=== PATIENT | female | born 1965 | race Caucasian/White ===

== ENCOUNTER 2016-03-12 12:44 | Emergency (ER) | payer OTHER ==
[~2016-03-12 12:44] MED LIST: ALLERGY SHOTS; ATENOLOL25 MG PO; BENACAR; BENICAR20 MG PO; BYDUREON PEN2 MG SC; CIPRO500 MG; CIPROFLOXACIN500 MG PO; CLARITIN10 MG PO; CLINDAMYCIN HC150 MG PO; CLINDAMYCIN150 MG PO; COZAAR100 MG PO; CYCLOBENZAPRINE10 MG PO; CYCLOBENZAPRINE5 M3 PO; CYMBALTA60 MG PO; ENABLEX15 MG; ENABLEX15 MG PO; FLEXERIL10 MG PO; HYDROCODONE BIT1 T11 PO; HYOMAX0.125 MG PO; JANUVIA100 MG; MOTRIN800 MG PO; MULTIPLE VITAMI1 CAP PO; Metformin Hydr500 MG PO; Motrin,Rufen800 MG PO; NAPROSYN375 MG PO; OMEPRAZOLE20 MG PO; ORPHENADRINE C100 M1 PO; Orphenadrine C100 MG PO; PREDNISONE50 MG PO; SINGULAIR10 MG PO; SKELAXIN800 MG PO; SYNTHROID,LEVO25 MCG PO; TOPROL XL25 MG PO; TRAMADOL HCL50 MG PO; ULTRAM50 MG PO; VICODIN 5-3001 EACH PO; VICODIN 5/500 505 MG PO; VICODIN 500 MG-1 TAB PO; VOLTAREN50 M1 PO; XANAX0.25 MG PO; ZITHROMAX Z PA250 MG PO
[2016-03-12 12:52] VITALS: BP 140/90
== END 2016-03-12 13:17 | disposition home or self-care (01) ==
LOC: ED 12:44
DX: L25.9 Unspecified contact dermatitis, unspecified cause (principal); Z88.1 Allergy status to other antibiotic agents; Z88.2 Allergy status to sulfonamides; Z90.49 Acquired absence of other specified parts of digestive tract; Z90.710 Acquired absence of both cervix and uterus; Z79.899 Other long term (current) drug therapy

== ENCOUNTER 2016-11-06 17:59 | Emergency (ER) | payer OTHER ==
[~2016-11-06] VITALS: Wt 81.6 kg
[2016-11-06 18:10] VITALS: BP 115/94
[2016-11-06] MEDS ORDERED: ROBAXIN500 M1 PO (18:15)
== END 2016-11-06 18:30 | disposition home or self-care (01) ==
LOC: ED 17:59
DX: M62.830 Muscle spasm of back (principal); R21 Rash and other nonspecific skin eruption; Z88.1 Allergy status to other antibiotic agents; Z88.8 Allergy status to other drugs, medicaments and biological substances; Z79.899 Other long term (current) drug therapy

== ENCOUNTER → 2016-11-24 | Outpatient (CLI) | payer OTHER ==
[~2016-11-24] MED LIST changes: +ROBAXIN500 M1 PO
== END | disposition home or self-care (01) ==
LOC: CT 11:00 → LAB 11:23
PROVIDERS: Radiology Diagnostic Radiology
DX: R10.9 Unspecified abdominal pain (principal); Z98.891 History of uterine scar from previous surgery

== ENCOUNTER 2017-07-14 12:10 | Emergency (ER) | payer OTHER ==
[~2017-07-14] VITALS: Wt 91.2 kg
[2017-07-14 12:15] VITALS: BP 157/88
[2017-07-14 12:35] LABS: BASO # 0.1 10*3/uL (0.0-0.1); EOS # 0.2 10*3/uL (0.0-0.4); EOS % 1.9 % (1.0-4.0); HEMATOCRIT 43.3 % (37.0-47.0); HEMOGLOBIN 14.8 g/dl (12.0-16.0); LYMPH # 2.9 10*3/uL (1.3-4.4); LYMPH % 31.4 % (27.0-41.0); MEAN CELL VOLUME 96.9 fl (81.0-99.0); MEAN CORPUSCULAR HGB 33.1 pg (27.0-31.0); MEAN CORPUSCULAR HGB CONC 34.2 g/dl (33.0-37.0); MEAN PLATELET VOLUME 9.7 fl (9.6-12.3); MONO # 0.6 10*3/uL (0.1-1.0); MONO % 6.9 % (3.0-9.0); NEUT # 5.3 10*3/uL (2.3-7.9); NEUT % 58.5 % (47.0-73.0); PLATELET COUNT AUTOMATED 264 10*3/uL (130-400); RED BLOOD COUNT 4.47 10*6/uL (4.10-5.10); RED CELL DISTRI WIDTH 12.8 % (0-14.5); WHITE BLOOD COUNT 9.1 10*3/uL (4.8-10.8)
[2017-07-14 12:53] LABS: ALBUMIN 3.9 gm/dl (3.1-4.5); ALKALINE PHOSPHATASE 122 U/L (45-117); BUN 11 mg/dl (7-24); CHLORIDE 102 mmol/L (98-107); CREATININE 0.92 mg/dL (0.55-1.02); LIPASE 126 U/L (73-393); POTASSIUM 3.7 mmol/L (3.5-5.1); SGOT/AST 38 IU/L (3-35); SGPT/ALT 43 U/L (12-78); SODIUM 138 mmol/L (136-145); TOTAL PROTEIN 7.5 gm/dL (6.4-8.2)
[2017-07-14 13:40] LABS: BILIRUBIN NEGATIVE (NEGATIVE); BLOOD NEGATIVE (NEGATIVE); CLARITY CLOUDY (CLEAR); COLOR YELLOW (YELLOW); GLUCOSE NEGATIVE (NEGATIVE); KETONE NEGATIVE (NEGATIVE); LEUKO ESTERASE NEGATIVE (NEGATIVE); NITRITE NEGATIVE (NEGATIVE); SPECIFIC GRAVITY >= 1.030 (1.005-1.030); UROBILINOGEN 0.2 E.U./dl (0.2-1.0)
[2017-07-14 13:57] LABS: BACTERIA 2+
[2017-07-14] MEDS ORDERED: CHLORZOXAZONE500 M2 PO (14:05)
== END 2017-07-14 14:19 | disposition home or self-care (01) ==
LOC: ED 12:10
PROVIDERS: Nurse Practitioner Family
DX: M54.5 Low back pain (principal); R03.0 Elevated blood-pressure reading, without diagnosis of hypertension; M19.90 Unspecified osteoarthritis, unspecified site; E11.9 Type 2 diabetes mellitus without complications; Z88.8 Allergy status to other drugs, medicaments and biological substances; Z88.6 Allergy status to analgesic agent; Z90.710 Acquired absence of both cervix and uterus; Z90.49 Acquired absence of other specified parts of digestive tract; Z79.899 Other long term (current) drug therapy

== ENCOUNTER 2017-07-18 14:37 | Inpatient (IN) | payer OTHER ==
[~2017-07-18] VITALS: Ht 152.4 cm; Wt 92.1 kg
--- NOTE | ~2017-07-18 | WRIGHTHP ---
[place], [place] PATIENT HISTORY AND PHYSICAL EXAM NAME: NATHANAEL COLE [facility] #: [id number] UNIT #: [id number] ROOM: 403 DOCTOR: PEDRO BAE MD BIRTHDATE: [birth year] DOS: 07/18/2017 HISTORY OF PRESENT ILLNESS: The patient is a 51-year-old female with past medical history of obesity, hypertension, diabetes mellitus type 2, hiatal hernia, cysts in both kidneys, urinary incontinence, mixed hyperlipidemia, colonoscopy in 2011, right foot surgery in June 2008, back injury at work in 2016 with chronic back pains. The patient presented to Emergency Department at [facility] with recurrent mid back and chest pains. She also had some increased shortness of breath and wheezing recently and complains of right flank pains for about 4 days and some nausea and vomiting. After admission, the patient's cardiac enzymes have been negative and patient has been seen by day habilitation supervisor and scheduled for a cardiac stress test. REVIEW OF SYSTEMS: LUNGS: Some shortness of breath and wheezing. GASTROINTESTINAL: Some nausea and vomiting. CARDIOVASCULAR: Complains of recurrent chest pains and back pains. FAMILY HISTORY: Noncontributory, except for father with coronary artery disease and MO at a young age. SOCIAL HISTORY: Denies smoking cigarettes, alcohol and drug abuse, but she has some exposure to secondhand smoke. HOME MEDICATIONS: Lisinopril, omeprazole, levothyroxine, Coreg, Cymbalta. ALLERGIES: Known allergies to DIAZEPAM, SULPHUR. PHYSICAL EXAMINATION: GENERAL: Alert, oriented x 3, obese. VITAL SIGNS: Blood pressure 126/90, heart rate of 73 beats per minute, breathing 20 times per minute, temperature 98 degrees Fahrenheit. HEENT AND NECK: Extraocular movements are intact. Sclerae are anicteric. Oral mucosa is moist and clean. No obvious facial weakness. Neck is supple without any lymphadenopathy. No thyromegaly. No JVD. No carotid arterial bruits. LUNGS: Clear to auscultation. No wheezing. No rhonchi. CARDIOVASCULAR SYSTEM: Heart rate is regular in rate and rhythm. S1 and S2 normally audible. No significant murmur or any other abnormal cardiac sounds. ABDOMEN: Soft, nontender. No obvious organomegaly. Bowel sounds are present. No obvious herniation. EXTREMITIES: Without significant cyanosis or edema. Warm to touch. CENTRAL NERVOUS SYSTEM: Alert and oriented x 3. Cranial nerves II-XII are intact. Speech is normal. The patient is able to move all extremities. Normal muscle strength. Deep tendon reflexes are equal on both sides. Plantars were downgoing. IMPRESSION: 1. The patient with acute bronchitis with some asthmatoid wheezing, to be treated with bronchodilators. 2. Recurrent chest pain, being evaluated with a cardiac stress test by [place], [place] PATIENT HISTORY AND PHYSICAL EXAM NAME: NATHANAEL COLE UNIT #: [id number] ROOM: [facility] DOCTOR: PEDRO BAE MD BIRTHDATE: [birth year] Cardiology. The patient has urine cultures growing Escherichia coli urinary tract infection from the July 16, to be treated with Augmentin, may be responsible for her flank pains. 3. Type 2 diabetes mellitus. Blood sugars are reasonably controlled. 4. Benign essential hypertension. Blood pressures are treated and controlled. 5. Major depression, recurrent, moderate. The patient remains on Cymbalta, which is being continued. 6. Hypothyroidism, treated with levothyroxine. PEDRO BAE MD CM:HISPHYS:PATIENT HISTORY AND PHYSICAL EXAMINATION [id number] PEDRO BAE MD 07/19/1734 interface
--- NOTE | ~2017-07-18 | DS ---
[place], [place] DISCHARGE SUMMARY NAME: NATHANAEL COLE UNIT #: [id number] ROOM: 403 DOCTOR: PEDRO BAE MD BIRTHDATE: [birth year] DOS: 07/20/2017 DISCHARGE DIAGNOSES: 1. Musculoskeletal chest pains, normal cardiac stress test and echocardiogram. 2. Acute bronchitis with asthmatoid wheezing. 3. Type 2 diabetes mellitus. 4. Benign essential hypertension. 5. Major depression, recurrent, moderate. 6. Hypothyroidism. 7. Obesity. 8. Hiatal hernia. 9. History of cysts in both kidneys. 10. Urinary incontinence. 11. Mixed hyperlipidemia. 12. Colonoscopy in 2011. 13. Right foot surgery in June 2008. 14. Back injury at work in 2016 with chronic back pains. HOSPITAL COURSE: The patient was admitted when she presented with mid back and chest pains, increased shortness of breath and wheezing, also right flank pains for about 4 days and some nausea and vomiting after admission. The patient was ruled out for acute MT with serial cardiac enzymes and then taken for a cardiac stress test, which was normal. An echocardiogram was also found to be normal. The patient to be discharged to home. She is asymptomatic now. Acute asthmatoid wheezing with some shortness of breath, treated with bronchodilators and improved. Urinary tract infection with E. coli, treated with Augmentin, probably responsible for the left flank pain, which has resolved. Major depression, recurrent, moderate, treated and controlled with Cymbalta. Hypothyroidism, treated with levothyroxine. Type 2 diabetes mellitus. Blood sugars appear to be reasonably controlled. LABORATORY DATA: Normal serum electrolytes. Normal cardiac enzymes. Echocardiogram is showing no wall motion abnormality. Cardiac stress test was normal. Normal CBC. DISCHARGE MANAGEMENT: Lisinopril 40 mg a day, omeprazole 20 mg a day, levothyroxine 25 mcg daily, Coreg 6.25 mg b.i.d., gabapentin 600 mg b.i.d., Cymbalta 60 mg a day, oxybutynin 5 mg t.i.d. FOLLOWUP: With Dr. Shaheen Hendricks next week. [place], [place] DISCHARGE SUMMARY NAME: NATHANAEL COLE UNIT #: [id number] ROOM: 403 DOCTOR: PEDRO BAE MD BIRTHDATE: [birth year] PEDRO BAE MD CM:DALE 15 [id number] PEDRO BAE MD 07/20/171933 interface
[~2017-07-18 14:37] MED LIST changes: +CHLORZOXAZONE500 M2 PO; -OMEPRAZOLE20 MG PO; +OMEPRAZOLE40 MG PO
[2017-07-18 14:45] VITALS: BP 116/98
[2017-07-18 14:56] LABS: BASO # 0.1 10*3/uL (0.0-0.1); BASO % 1.3 % (0.0-1.0); EOS # 0.2 10*3/uL (0.0-0.4); HEMATOCRIT 43.6 % (37.0-47.0); HEMOGLOBIN 15.1 g/dl (12.0-16.0); LYMPH % 32.1 % (27.0-41.0); MEAN CELL VOLUME 95.4 fl (81.0-99.0); MEAN CORPUSCULAR HGB CONC 34.6 g/dl (33.0-37.0); MEAN PLATELET VOLUME 9.6 fl (9.6-12.3); MONO # 0.6 10*3/uL (0.1-1.0); MONO % 6.7 % (3.0-9.0); NEUT # 5.4 10*3/uL (2.3-7.9); NEUT % 57.6 % (47.0-73.0); PLATELET COUNT AUTOMATED 305 10*3/uL (130-400); RED BLOOD COUNT 4.57 10*6/uL (4.10-5.10); RED CELL DISTRI WIDTH 12.7 % (0-14.5); WHITE BLOOD COUNT 9.3 10*3/uL (4.8-10.8)
[2017-07-18 15:04] VITALS: BP 119/89
[2017-07-18 15:04] LABS: ACT PARTIAL THROMBO TIME 22.8 SECONDS (20.8-31.5); INTERNATIONAL NORM RATIO 0.9 (2.0-3.5)
[2017-07-18 15:11] LABS: ALBUMIN 3.8 gm/dl (3.1-4.5); ALKALINE PHOSPHATASE 122 U/L (45-117); BUN 17 mg/dl (7-24); CHLORIDE 104 mmol/L (98-107); CREATININE 0.96 mg/dL (0.55-1.02); SGOT/AST 67 IU/L (3-35); SGPT/ALT 52 U/L (12-78); SODIUM 138 mmol/L (136-145); TOTAL PROTEIN 7.6 gm/dL (6.4-8.2)
[2017-07-18] MEDS ORDERED: LISINOPRIL40 MG PO (15:18)
[2017-07-18 15:19] LABS: TROPONIN I < 0.015 ng/ml (<0.045)
[2017-07-18] MEDS ORDERED: COREG6.25 MG PO (15:19)
[2017-07-18] MEDS ORDERED: NEURONTIN300 MG PO (15:30)
[2017-07-18 15:46] VITALS: BP 117/69
[2017-07-18 16:24] LABS: BILIRUBIN 1+ (NEGATIVE); BLOOD NEGATIVE (NEGATIVE); CLARITY SL CLOUDY (CLEAR); COLOR YELLOW (YELLOW); GLUCOSE NEGATIVE (NEGATIVE); KETONE TRACE (NEGATIVE); LEUKO ESTERASE NEGATIVE (NEGATIVE); NITRITE NEGATIVE (NEGATIVE); PH 5.5 (5.0-9.0); UROBILINOGEN 0.2 E.U./dl (0.2-1.0)
[2017-07-18 16:38] LABS: MUCOUS 1+; RBC 0-2 rbc/hpf (0-2)
[2017-07-18 20:00] VITALS: BP 123/83
[2017-07-19] VITALS: BP 160/44
[2017-07-19 08:00] VITALS: BP 126/90
[2017-07-19 12:00] VITALS: BP 146/90
[2017-07-19 16:00] VITALS: BP 124/83
[2017-07-19 20:00] VITALS: BP 108/63
[2017-07-19 23:56] VITALS: BP 140/82
[2017-07-20 08:00] VITALS: BP 110/78
[2017-07-20 12:00] VITALS: BP 130/61
[2017-07-20 16:00] VITALS: BP 141/82
== END 2017-07-20 19:44 | disposition home or self-care (01) | DRG 202 ==
LOC: ED 14:37 → EDHOLD 16:01 → 4E 16:01
PROVIDERS: Emergency Medicine
PROC: 4A02XM4 Measurement of Cardiac Total Activity, External Approach (ICD-10-PCS; principal; 2017-07-19)
PROC: 3E073KZ Introduction of Other Diagnostic Substance into Coronary Artery, Percutaneous Approach (ICD-10-PCS; 2017-07-19)
DX: J20.9 Acute bronchitis, unspecified (principal); N39.0 Urinary tract infection, site not specified; E11.65 Type 2 diabetes mellitus with hyperglycemia; F33.1 Major depressive disorder, recurrent, moderate; R07.89 Other chest pain; E66.01 Morbid (severe) obesity due to excess calories; R00.0 Tachycardia, unspecified; K44.9 Diaphragmatic hernia without obstruction or gangrene; R32 Unspecified urinary incontinence; E78.2 Mixed hyperlipidemia; R74.0 Nonspecific elevation of levels of transaminase and lactic acid dehydrogenase [LDH]; M19.90 Unspecified osteoarthritis, unspecified site; I10 Essential (primary) hypertension; G89.29 Other chronic pain; E03.9 Hypothyroidism, unspecified; M54.9 Dorsalgia, unspecified; B96.20 Unspecified Escherichia coli [E. coli] as the cause of diseases classified elsewhere; N32.81 Overactive bladder; M79.2 Neuralgia and neuritis, unspecified; K21.9 Gastro-esophageal reflux disease without esophagitis; Z90.710 Acquired absence of both cervix and uterus; Z90.49 Acquired absence of other specified parts of digestive tract; Z79.899 Other long term (current) drug therapy; Z88.1 Allergy status to other antibiotic agents; Z88.2 Allergy status to sulfonamides; Z88.8 Allergy status to other drugs, medicaments and biological substances; Z83.3 Family history of diabetes mellitus; Z82.49 Family history of ischemic heart disease and other diseases of the circulatory system; Z82.3 Family history of stroke; Z80.1 Family history of malignant neoplasm of trachea, bronchus and lung; Z83.79 Family history of other diseases of the digestive system

== ENCOUNTER 2017-07-22 19:58 | Inpatient (IN) | payer OTHER ==
[2017-07-22] VITALS (18 sets, daily range): BP systolic 61–110; BP diastolic 28–78
[~2017-07-22] VITALS: Ht 152.4 cm; Wt 95.0 kg
--- NOTE | ~2017-07-22 | PR ---
[place], [place] [facility]GR[facility] NOTE [id number] UN[facility] #: [id number] ROOM: 505 DOCTOR: GHADA RAMIREZ MD BIRTHDATE: [birth year] DOS: SUBJECTIVE: The patient is not having any complaints today. She is resting. OBJECTIVE: VITAL SIGNS: Blood pressure is 95/52, pulse of 90, respirations 20, temperature 97.9. LUNGS: Clear. HEART: Regular. ABDOMEN: Soft. EXTREMITIES: Without any edema. LABORATORY DATA: Carotid Doppler was negative. Thoracic spine MRI was normal. ASSESSMENT AND PLAN: 1. Vasovagal syncope result on admission. After admission, she has remained stable without any problems: 2. Chronic back pain. MRI was negative yesterday, so the plan is to discharge her to home today. GHADA RAMIREZ MD CM:PNTRANS [id number] GHADA RAMIREZ MD 07/24/17 0926 interface
--- NOTE | ~2017-07-22 | WRIGHTHP ---
[place], [place] PATIENT HISTORY AND PHYSICAL EXAM [id number] UNIT #: [id number] ROOM: 505 DOCTOR: GHADA RAMIREZ MD BIRTHDATE: [birth year] DOS: 07/22/2017 HISTORY OF PRESENT ILLNESS: The patient is 51 years old. The patient comes in with complaints of back pain. The patient states that she was in the hospital with chest pain and back pain last week. Had a complete workup including stress test, echocardiogram and troponins, which were all normal along with a CT of the chest, which was also negative. The patient was discharged to home, but continued to have severe back pain, so decided to come back to the Emergency Room. Workup was initiated in the ER and they were about to discharge the patient to home when she fainted in front of the nursing staff and her provider, so the patient was admitted. This morning, the only complaint that she has is she has back pain. Denies having any chest pains or palpitations, does not have any fever or chills. Does not have any abdominal pain, nausea, emesis. Does not have any cough or shortness of breath. The patient is rocking in chair because of continued complaints of back and requesting something for back pain. PAST MEDICAL HISTORY: Significant for: 1. Again recent hospitalization for musculoskeletal pain and workup was negative. 2. Chronic back pain. 3. Major depression. 4. Hypothyroidism. 5. Benign hypertension. 6. Type 2 diabetes mellitus. MEDICATIONS: She is on are Bydureon, omeprazole 40 daily, lisinopril 40 daily, levothyroxine 25 mcg daily, Neurontin 300 b.i.d., duloxetine 60 daily, Enablex 50 daily, Coreg 6.25 twice a day. SOCIAL HISTORY: Nonsmoker. She lives at home. PHYSICAL EXAMINATION: GENERAL: She is awake and alert and oriented. She is rocking in chair because of her back pain. BACK: Examination reveals a large area of discoloration, possibly from burning from heating pad. LUNGS: Clear. HEART: Regular. ABDOMEN: Obese, soft, nontender. EXTREMITIES: Without any edema. ASSESSMENT AND PLAN: 1. The patient with syncopal episode, most likely appears to be vasovagal. The patient is ordered a carotid Doppler. Rest of her cardiac workup was recently done and negative, so I am not ordering anything new. 2. Chronic back pain. She has seen pain management and is awaiting a neurosurgical opinion. We will go ahead and arrange for a thoracic spine MRI to see whether she has compression fracture because of recent cough and bronchitis-like symptoms. 3. Type 2 diabetes mellitus, insulin-dependent. Blood sugars will be checked [place], [place] PATIENT HISTORY AND PHYSICAL EXAM NAME: NATHANAEL COLE UNIT #: [id number] ROOM: [facility] DOCTOR: GHADA RAMIREZ MD BIRTHDATE: [birth year] twice daily and coverage scale will be ordered. 4. Acute kidney injury. Her kidney functions do show some worsening from the last time she was here and it could be from acute tubular necrosis from hypotension from multiple medicines that she is on. IV fluids were given and we will recheck the basic metabolic panel in the morning. Avoid nonsteroidals. GHADA RAMIREZ MD CM:HISPHYS:PATIENT HISTORY AND PHYSICAL EXAMINATION [id number] GHADA RAMIREZ MD 07/23/17 1074 interface
--- NOTE | ~2017-07-22 | DS ---
[place], [place] DISCHARGE SUMMARY NAME: NATHANAEL COLE UNIT #: [id number] ROOM: 505 DOCTOR: GHADA RAMIREZ MD BIRTHDATE: [birth year] DOS: 07/24/2017 HISTORY OF PRESENT ILLNESS: The patient is 51 years old. The patient comes to the Emergency Room with complaints of back pain, mostly in the middle of her back. She was just discharged from the hospital 2 days prior to this visit. At that time, she was seen here with shortness of breath. Had a cardiac and pulmonary workups, which were both negative. She was about to be discharged back from the ER when she collapsed in front of the nursing staff, was admitted with diagnosis of vasovagal syncope. The patient does not have any complaints other than back pain after admission. She does not have any dizziness, lightheadedness or headaches. Denies having any chest pains or palpitations. PAST MEDICAL HISTORY: 1. Again, cardiac workup recently was negative. 2. Benign hypertension. 3. Type 2 diabetes mellitus. 4. Hypothyroidism. 5. Mixed hyperlipidemia. 6. History of cystic disease of the kidneys. 7. Chronic back pain. MEDICATIONS: She is currently on are the same as on admission. HOSPITAL COURSE: After admission, the patient was placed on IV fluids. Carotid Doppler was done, which was negative. I did not give her any new antihypertensives, so old antihypertensives have been continued. Blood sugars are under fair control. Carotid Doppler was negative. CT of the head will be done before discharge. Thoracic spine MRI was negative. PLAN: Therefore, to discharge her to home today to follow up with Dr. Sherman as an outpatient. [place], [place] DISCHARGE SUMMARY NAME: NATHANAEL COLE UNIT #: [id number] ROOM: 505 DOCTOR: GHADA RAMIREZ MD BIRTHDATE: [birth year] GHADA RAMIREZ MD CM:DISCHARG 0921 GHADA RAMIREZ MD 07/24/17 1314 interface
--- NOTE | ~2017-07-22 | DS ---
[place], [place] DISCHARGE SUMMARY NAME: NATHANAEL COLE UNIT #: [id number] ROOM: 505 DOCTOR: GHADA RAMIREZ MD BIRTHDATE: [birth year] DOS: 07/24/2017 DIAGNOSES: 1. Vasovagal syncope. 2. Cardiac workup last week completely negative. 3. Carotid Doppler normal. 4. Chronic back pain with normal thoracic spine MRI. 5. Major depression. 6. Chronic back pain. 7. Hypothyroidism. 8. Benign hypertension. 9. Type 2 diabetes mellitus. 10. A 4.4 cm simple left renal cyst. MEDICATIONS: Are the same as admission. The only new prescription given was lidocaine patch for local application. The patient is 51-year-old, comes in with complaints of back pain. She was recently admitted to hospital with chest pain and back pain. Cardiac workup was negative. Echocardiogram was normal. CT of the chest was negative. She came back in again this admission with severe back pain. Workup was negative and the patient was about to be discharged when she fainted in front of the nursing staff, so she was admitted to the hospital. In the hospital, she was given IV fluids. Carotid Doppler was negative, which was normal. Her blood pressures are fairly controlled and her blood sugars also fairly controlled on the current medication. She complained of severe back pain, was given lidocaine patch. MRI of the thoracic spine was ordered, which did not show any pathology at all. Since her pressures have normalized and she has not had any further fainting spells, the plan is to discharge her to home today to follow up as an outpatient. The patient is to follow up with her PCP for further suggestions. [place], [place] DISCHARGE SUMMARY NAME: NATHANAEL COLE UNIT #: [id number] ROOM: 505 DOCTOR: GHADA RAMIREZ MD BIRTHDATE: [birth year] GHADA RAMIREZ MD CM:DISCHARG [id number] GHADA RAMIREZ MD 07/24/17 1529 interface
[~2017-07-22 19:58] MED LIST changes: +COREG6.25 MG PO; +LISINOPRIL40 MG PO; +NEURONTIN300 MG PO
[2017-07-22 21:37] LABS: BASO # 0.1 10*3/uL (0.0-0.1); BASO % 0.9 % (0.0-1.0); EOS # 0.1 10*3/uL (0.0-0.4); EOS % 1.3 % (1.0-4.0); HEMATOCRIT 41.7 % (37.0-47.0); HEMOGLOBIN 14.2 g/dl (12.0-16.0); LYMPH # 2.7 10*3/uL (1.3-4.4); LYMPH % 25.3 % (27.0-41.0); MEAN CELL VOLUME 97.4 fl (81.0-99.0); MEAN CORPUSCULAR HGB 33.2 pg (27.0-31.0); MEAN CORPUSCULAR HGB CONC 34.1 g/dl (33.0-37.0); MEAN PLATELET VOLUME 9.9 fl (9.6-12.3); MONO # 0.7 10*3/uL (0.1-1.0); MONO % 6.7 % (3.0-9.0); NEUT % 65.5 % (47.0-73.0); PLATELET COUNT AUTOMATED 289 10*3/uL (130-400); RED BLOOD COUNT 4.28 10*6/uL (4.10-5.10); RED CELL DISTRI WIDTH 12.7 % (0-14.5); WHITE BLOOD COUNT 10.7 10*3/uL (4.8-10.8)
[2017-07-22 21:52] LABS: ALBUMIN 3.5 gm/dl (3.1-4.5); CREATININE 1.34 mg/dL (0.55-1.02); POTASSIUM 4.7 mmol/L (3.5-5.1); TOTAL PROTEIN 6.7 gm/dL (6.4-8.2)
[2017-07-22 22:02] LABS: TROPONIN I < 0.015 ng/ml (<0.045)
[2017-07-22 23:07] LABS: BILIRUBIN NEGATIVE (NEGATIVE); BLOOD NEGATIVE (NEGATIVE); CLARITY CLEAR (CLEAR); COLOR YELLOW (YELLOW); GLUCOSE 3+ (NEGATIVE); KETONE NEGATIVE (NEGATIVE); LEUKO ESTERASE NEGATIVE (NEGATIVE); NITRITE NEGATIVE (NEGATIVE); SPECIFIC GRAVITY <= 1.005 (1.005-1.030); UROBILINOGEN 0.2 E.U./dl (0.2-1.0)
[2017-07-22 23:17] LABS: BACTERIA 1+; RBC 0-2 rbc/hpf (0-2)
[2017-07-23] VITALS: BP 112/78
[2017-07-23 04:00] VITALS: BP 117/78
[2017-07-23 08:00] VITALS: BP 138/60
[2017-07-23 12:00] VITALS: BP 152/89
[2017-07-23 16:00] VITALS: BP 147/90
[2017-07-23 20:00] VITALS: BP 151/95; BP 1571/95
[2017-07-24] VITALS: BP 155/94
[2017-07-24 04:00] VITALS: BP 148/90
[2017-07-24 08:00] VITALS: BP 95/52
[2017-07-24] MEDS ORDERED: LMX4 4% TRANSPAR1 EA PO (08:57)
[2017-07-24 12:00] VITALS: BP 133/84
== END 2017-07-24 12:09 | disposition home or self-care (01) | DRG 552 ==
LOC: ED 19:58 → 5E 23:33 → EDHOLD 23:33 → 5E 23:40
PROVIDERS: Physician Assistant
DX: M54.9 Dorsalgia, unspecified (principal); N17.9 Acute kidney failure, unspecified; I95.9 Hypotension, unspecified; Z68.41 Body mass index [BMI] 40.0-44.9, adult; N28.1 Cyst of kidney, acquired; R55 Syncope and collapse; G89.29 Other chronic pain; F32.9 Major depressive disorder, single episode, unspecified; E03.9 Hypothyroidism, unspecified; I10 Essential (primary) hypertension; E11.9 Type 2 diabetes mellitus without complications; E78.2 Mixed hyperlipidemia; E66.9 Obesity, unspecified; Z88.8 Allergy status to other drugs, medicaments and biological substances; Z88.2 Allergy status to sulfonamides; Z79.899 Other long term (current) drug therapy; Z90.49 Acquired absence of other specified parts of digestive tract; Z90.710 Acquired absence of both cervix and uterus; Z90.89 Acquired absence of other organs; Z82.49 Family history of ischemic heart disease and other diseases of the circulatory system; Z83.3 Family history of diabetes mellitus; Z82.3 Family history of stroke; Z80.1 Family history of malignant neoplasm of trachea, bronchus and lung; Z84.89 Family history of other specified conditions

== ENCOUNTER 2018-03-13 19:46 | Emergency (ER) | payer OTHER ==
[~2018-03-13] VITALS: Ht 152.4 cm; Wt 90.7 kg
[~2018-03-13 19:46] MED LIST changes: -BYDUREON P2 MG/0.65 SQ; -CARVEDILOL12.5 MG PO; -DITROPAN XL10 MG PO; -METHOCARBAMOL500 M1 PO; -NORCO 5-325 TA1 EACH PO; -NORCO 7.5-3251 EACH PO; -TOUJEO SOL300 UNIT/1 SQ; -ZOFRAN4 MG PO
[2018-03-13 21:26] LABS: BASO # 0.1 10*3/uL (0.0-0.1); BASO % 0.7 % (0.0-1.0); EOS # 0.1 10*3/uL (0.0-0.4); EOS % 1.1 % (1.0-4.0); HEMATOCRIT 45.6 % (37.0-47.0); HEMOGLOBIN 16.2 g/dl (12.0-16.0); LYMPH # 2.3 10*3/uL (1.3-4.4); LYMPH % 20.8 % (27.0-41.0); MEAN CELL VOLUME 93.4 fl (81.0-99.0); MEAN CORPUSCULAR HGB 33.2 pg (27.0-31.0); MEAN CORPUSCULAR HGB CONC 35.5 g/dl (33.0-37.0); MEAN PLATELET VOLUME 9.7 fl (9.6-12.3); MONO # 0.7 10*3/uL (0.1-1.0); MONO % 6.3 % (3.0-9.0); NEUT # 7.8 10*3/uL (2.3-7.9); NEUT % 70.9 % (47.0-73.0); PLATELET COUNT AUTOMATED 274 10*3/uL (130-400); RED BLOOD COUNT 4.88 10*6/uL (4.10-5.10); RED CELL DISTRI WIDTH 12.7 % (0-14.5); WHITE BLOOD COUNT 11.1 10*3/uL (4.8-10.8)
[2018-03-13 21:47] LABS: ALBUMIN 4.1 gm/dl (3.1-4.5); BUN 10 mg/dl (7-24); CHLORIDE 106 mmol/L (98-107); CREATININE 0.92 mg/dL (0.55-1.02); LIPASE 123 U/L (73-393); POTASSIUM 4.1 mmol/L (3.5-5.1); SGOT/AST 72 IU/L (3-35); SGPT/ALT 64 U/L (12-78); SODIUM 139 mmol/L (136-145); TOTAL PROTEIN 7.8 gm/dL (6.4-8.2)
[2018-03-13 21:48] LABS: ALKALINE PHOSPHATASE 163 U/L (45-117)
[2018-03-13 21:56] LABS: BILIRUBIN NEGATIVE (NEGATIVE); BLOOD NEGATIVE (NEGATIVE); CLARITY CLEAR (CLEAR); COLOR YELLOW (YELLOW); GLUCOSE 3+ (NEGATIVE); KETONE TRACE (NEGATIVE); LEUKO ESTERASE NEGATIVE (NEGATIVE); NITRITE NEGATIVE (NEGATIVE); SPECIFIC GRAVITY >= 1.030 (1.005-1.030); UROBILINOGEN 0.2 E.U./dl (0.2-1.0)
[2018-03-13 22:02] LABS: RBC 0-2 rbc/hpf (0-2); WBC 0-2 wbc/hpf (0-5)
[2018-03-13 22:40] VITALS: BP 147/94
[2018-03-14] MEDS ORDERED: TOUJEO SOL300 UNIT/1 SQ (21:43)
[2018-03-14] MEDS ORDERED: METHOCARBAMOL500 M1 PO (21:43)
[2018-03-14] MEDS ORDERED: ZOFRAN4 MG PO (21:49)
[2018-03-21] MEDS ORDERED: CARVEDILOL12.5 MG PO (10:56)
[2018-03-21] MEDS ORDERED: DITROPAN XL10 MG PO (11:00)
[2018-03-28] MEDS ORDERED: NORCO 7.5-3251 EACH PO (10:52)
[2018-04-23] MEDS ORDERED: BYDUREON P2 MG/0.65 SQ (13:47)
[2018-04-25] MEDS ORDERED: NORCO 5-325 TA1 EACH PO (08:54)
== END 2018-03-14 00:27 | disposition home or self-care (01) ==
LOC: ED 19:46
PROVIDERS: Physician Assistant
DX: M54.6 Pain in thoracic spine (principal); R10.9 Unspecified abdominal pain; R11.0 Nausea; G89.29 Other chronic pain; K21.9 Gastro-esophageal reflux disease without esophagitis; E78.5 Hyperlipidemia, unspecified; E03.9 Hypothyroidism, unspecified; I10 Essential (primary) hypertension; E11.9 Type 2 diabetes mellitus without complications; M19.90 Unspecified osteoarthritis, unspecified site; E66.01 Morbid (severe) obesity due to excess calories; Z88.8 Allergy status to other drugs, medicaments and biological substances; Z88.2 Allergy status to sulfonamides; Z79.899 Other long term (current) drug therapy

== ENCOUNTER → 2018-03-13 | Outpatient (CLI) | payer OTHER ==
[~2018-03-13] MED LIST changes: +BYDUREON P2 MG/0.65 SQ; +CARVEDILOL12.5 MG PO; +DITROPAN XL10 MG PO; +LMX4 4% TRANSPAR1 EA PO; +METHOCARBAMOL500 M1 PO; +NORCO 5-325 TA1 EACH PO; +NORCO 7.5-3251 EACH PO; +TOUJEO SOL300 UNIT/1 SQ; +ZOFRAN4 MG PO
== END | disposition home or self-care (01) ==
LOC: LAB 15:42
DX: R19.7 Diarrhea, unspecified (principal)

== ENCOUNTER 2018-03-14 | Emergency (ER) | payer OTHER ==
[2018-03-14] MEDS ORDERED: TOUJEO SOL300 UNIT/1 SQ (21:43)
[2018-03-14] MEDS ORDERED: METHOCARBAMOL500 M1 PO (21:43)
[2018-03-14] MEDS ORDERED: ZOFRAN4 MG PO (21:49)
[2018-03-21] MEDS ORDERED: CARVEDILOL12.5 MG PO (10:56)
[2018-03-21] MEDS ORDERED: DITROPAN XL10 MG PO (11:00)
[2018-03-28] MEDS ORDERED: NORCO 7.5-3251 EACH PO (10:52)
[2018-04-23] MEDS ORDERED: BYDUREON P2 MG/0.65 SQ (13:47)
[2018-04-25] MEDS ORDERED: NORCO 5-325 TA1 EACH PO (08:54)
== END 2018-03-14 21:56 | disposition home or self-care (01) ==
DX: G89.29 Other chronic pain (principal); M54.6 Pain in thoracic spine; R11.10 Vomiting, unspecified; Z88.8 Allergy status to other drugs, medicaments and biological substances; Z88.2 Allergy status to sulfonamides; Z79.899 Other long term (current) drug therapy; Z79.4 Long term (current) use of insulin; Z90.710 Acquired absence of both cervix and uterus; Z90.49 Acquired absence of other specified parts of digestive tract

== ENCOUNTER → 2018-03-21 | Outpatient (CLI) | payer OTHER ==
[~2018-03-21] MED LIST changes: +BYDUREON P2 MG/0.65 SQ; +CARVEDILOL12.5 MG PO; +DITROPAN XL10 MG PO; +METHOCARBAMOL500 M1 PO; +NORCO 5-325 TA1 EACH PO; +NORCO 7.5-3251 EACH PO; +TOUJEO SOL300 UNIT/1 SQ; +ZOFRAN4 MG PO
--- NOTE | ~2018-03-21 | EKG ---
[place], [place] ELECTROCARDIOGRAM REPORT NAME: NATHANAEL COLE UNIT #: [id number] ROOM: DOCTOR: PITER DRAFT REPORT BIRTHDATE: [birth year] [facility] Test Date: 2018-03-21 Test Time: 12:53:03 Pat Name: NATHANAEL COLE Department: Room: Gender: F Band Master: Lupe Fuentes : 1965 Requested By: CIARAN DELONG Order Number: [id number] Reading MD: Tre Paulino MD Measurements Intervals [place] Rate: 79 P: 41 VA: 132 QRS: -15 QRSD: 86 T: 53 QT: 380 QTc: 436 Interpretive Statements Sinus rhythm Borderline left axis deviation Low voltage, precordial leads Electronically Signed On 03-21-2018 17:31:55 PST by Tre Paulino MD CM:EKGRPT:ELECTROCARDIOGRAM REPORT [id number] CIARAN DUMAS DRAFT REPORT CIARAN DELONG MD
[2018-03-21 12:42] LABS: BASO # 0.1 10*3/uL (0.0-0.1); BASO % 1.5 % (0.0-1.0); EOS # 0.3 10*3/uL (0.0-0.4); EOS % 3.4 % (1.0-4.0); HEMATOCRIT 47.3 % (37.0-47.0); HEMOGLOBIN 16.3 g/dl (12.0-16.0); LYMPH # 2.8 10*3/uL (1.3-4.4); LYMPH % 34.6 % (27.0-41.0); MEAN CELL VOLUME 94.4 fl (81.0-99.0); MEAN CORPUSCULAR HGB 32.5 pg (27.0-31.0); MEAN CORPUSCULAR HGB CONC 34.5 g/dl (33.0-37.0); MEAN PLATELET VOLUME 9.9 fl (9.6-12.3); MONO # 0.6 10*3/uL (0.1-1.0); MONO % 7.5 % (3.0-9.0); NEUT # 4.2 10*3/uL (2.3-7.9); NEUT % 52.6 % (47.0-73.0); PLATELET COUNT AUTOMATED 290 10*3/uL (130-400); RED BLOOD COUNT 5.01 10*6/uL (4.10-5.10); RED CELL DISTRI WIDTH 12.8 % (0-14.5)
[2018-03-21 12:45] LABS: BILIRUBIN NEGATIVE (NEGATIVE); BLOOD NEGATIVE (NEGATIVE); CLARITY SL CLOUDY (CLEAR); COLOR YELLOW (YELLOW); GLUCOSE NEGATIVE (NEGATIVE); KETONE NEGATIVE (NEGATIVE); LEUKO ESTERASE NEGATIVE (NEGATIVE); NITRITE NEGATIVE (NEGATIVE); PH 5.5 (5.0-9.0); SPECIFIC GRAVITY >= 1.030 (1.005-1.030); UROBILINOGEN 0.2 E.U./dl (0.2-1.0)
[2018-03-21 13:14] LABS: BACTERIA 1+; MUCOUS 1+
[2018-03-21 13:17] LABS: CHLORIDE 104 mmol/L (98-107); POTASSIUM 4.2 mmol/L (3.5-5.1); SODIUM 138 mmol/L (136-145)
[2018-03-21 13:22] LABS: BUN 11 mg/dl (7-24); CREATININE 0.84 mg/dL (0.55-1.02)
[2018-03-21 13:23] LABS: ACT PARTIAL THROMBO TIME 23.8 SECONDS (20.8-31.5)
== END | disposition home or self-care (01) ==
LOC: LAB 10:27
PROVIDERS: Surgery
DX: K42.9 Umbilical hernia without obstruction or gangrene (principal)

== ENCOUNTER → 2018-03-28 | Day surgery (SDC) | payer OTHER ==
[2018-03-21 11:08] VITALS: BP 150/104
[2018-03-28] VITALS (9 sets, daily range): BP systolic 91–132; BP diastolic 63–92
--- NOTE | ~2018-03-28 | O ---
[place], [place] OPERATIVE NOTE NAME: NATHANAEL COLE UNIT #: [id number] ROOM: DOCTOR: RANGEL DAS MD BIRTHDATE: [birth year] DOS: 03/28/2018 PREOPERATIVE DIAGNOSIS: Recurrent umbilical and right spigelian hernia. POSTOPERATIVE DIAGNOSIS: Recurrent umbilical and right spigelian hernia. PROCEDURE: Repair of umbilical hernia with mesh, repair of right-sided spigelian hernia. SURGEON: Rangel Das MD DIGITAL ASSOCIATE: PAPO. ANESTHESIA: General with endotracheal intubation. INDICATIONS: This is a 52-year-old lady with a history of recurrent symptomatic right spigelian and umbilical hernia, who is here for the above-mentioned procedure. The procedure and its complications were explained to the patient in detail preoperatively. Complications that were discussed included but were not limited to bleeding, infection, hematoma/seroma/abscess formation, recurrence, prolonged postoperative pain, and damage to underlying vital structures. She agreed to proceed. DESCRIPTION OF PROCEDURE: After identifying the patient, the patient was brought to the operating suite and laid in the supine position. After a time-out procedure was called, general anesthesia was induced by the anesthesia team and the parts were painted and draped in the usual sterile fashion. An incision in a curvilinear fashion was made below the umbilicus. The skin and the subcutaneous tissue were incised. The hernia site was dissected away from the surrounding subcutaneous tissue and the hernial sac itself was incised and the surrounding adhesions between the omentum and the sac of the umbilical hernia was out with the help of electrocautery. After that was done, a medium Ventralex mesh was brought in and placed under the fascia. It was fixed to the overlying fascia with the help of 2-0 Prolene in an interrupted fashion. Thereafter, the edges of the fascial defect itself was approximated with the help of #1 PDS in a running fashion. Thereafter, the subcutaneous tissue was irrigated and approximated with 3-0 Vicryl in interrupted fashion and the skin edges were approximated with help of 4-0 Vicryl in a subcuticular running fashion after edges of the skin were infiltrated with 1% plain lidocaine. Attention was turned to the right lower quadrant over the area of the umbilical hernia. The skin and the subcutaneous tissue were incised in the line of the incision. The hernial sac was identified after it was dissected away from the overlying subcutaneous tissue. The hernial sac itself was incised and a portion of the omentum was also excised with the help of electrocautery and sent for histopathological diagnosis. The hernial defect itself was not found to be very large and was then approximated in a primary fashion with the help of looped PDS in a running fashion. Saline was used for irrigation and the subcutaneous tissue was then approximated with the help of 3-0 Vicryl in 2 layers in an interrupted fashion. The edges of the skin were infiltrated with 1% plain lidocaine and approximated with 4-0 Vicryl in a subcuticular running [place], [place] OPERATIVE NOTE NAME: NATHANAEL COLE [place] UNIT #: [id number] ROOM: DOCTOR: RANGEL DAS MD BIRTHDATE: [birth year] fashion. Dressing was placed. The patient tolerated the procedure well. She was extubated uneventfully and brought back to the recovery room in stable fashion. There were no complications. Dr. Rangel Das, the attending surgeon, was present throughout the operating case. Rangel Das MD CM:OPRECORD:OPERATIVE NOTE [id number] RANGEL DAS MD 03/28/18 1216 interface
== END | disposition home or self-care (01) ==
LOC: SDC 03-21 11:00
DX: K43.2 Incisional hernia without obstruction or gangrene (principal); K42.9 Umbilical hernia without obstruction or gangrene; E11.9 Type 2 diabetes mellitus without complications; I10 Essential (primary) hypertension; F41.9 Anxiety disorder, unspecified; E03.9 Hypothyroidism, unspecified; K21.9 Gastro-esophageal reflux disease without esophagitis; E66.9 Obesity, unspecified; F32.9 Major depressive disorder, single episode, unspecified; M19.90 Unspecified osteoarthritis, unspecified site; Z68.39 Body mass index [BMI] 39.0-39.9, adult; E78.00 Pure hypercholesterolemia, unspecified; Z90.49 Acquired absence of other specified parts of digestive tract; Z90.710 Acquired absence of both cervix and uterus; Z98.890 Other specified postprocedural states; Z79.1 Long term (current) use of non-steroidal anti-inflammatories (NSAID); Z79.899 Other long term (current) drug therapy; Z88.8 Allergy status to other drugs, medicaments and biological substances; Z79.4 Long term (current) use of insulin; Z80.1 Family history of malignant neoplasm of trachea, bronchus and lung; Z80.3 Family history of malignant neoplasm of breast; Z83.3 Family history of diabetes mellitus; Z82.49 Family history of ischemic heart disease and other diseases of the circulatory system; Z82.3 Family history of stroke

== ENCOUNTER → 2018-04-25 | Day surgery (SDC) | payer OTHER ==
[~2018-04-25] VITALS: Ht 152.4 cm; Wt 90.7 kg
--- NOTE | ~2018-04-25 | O ---
[place], [place] OPERATIVE NOTE NAME: NATHANAEL COLE UNIT #: [id number] ROOM: DOCTOR: RANGEL DAS MD BIRTHDATE: [birth year] DOS: 04/25/2018 PREOPERATIVE DIAGNOSIS: Umbilical wound infection. POSTOPERATIVE DIAGNOSIS: Umbilical wound infection. PROCEDURE: Incision and drainage of umbilical wound. SURGEON: Rangel Das MD SKIN CARE CONSULTANT: PAPO. ANESTHESIA: MAC with local (1% plain lidocaine). INDICATIONS: This is a 52-year-old lady who recently underwent an umbilical hernia repair with mesh, who is here for a suspected umbilical wound infection. The procedure and its complications were explained to the patient in detail and she agreed to proceed. DESCRIPTION OF PROCEDURE: After identifying the patient, the patient was brought to the operating suite and laid in the supine position. After time-out procedure was called, IV sedation was administered by the anesthesia team and the parts were then painted and draped in the usual sterile fashion. After injecting 1% plain lidocaine in the wound edges, the wound was partially opened towards the left side where there was some infected fluid that was seen to be coming out. The wound was opened and deepened in layers until a small pocket of pus was encountered. The specimen was sent for culture and sensitivity. The cavity was irrigated with saline and then packed with half-inch iodoform. In order to enhance the healing, the edges of the skin were brought together with the help of 2-0 nylon in an interrupted fashion on either side of the packing. Dressing was then placed. The patient was then brought back to the recovery room in stable fashion. There were no complications. Dr. Rangel Das, the attending surgeon, was present throughout the operating case. [place], [place] OPERATIVE NOTE NAME: DOUGLASJOSE TOLLIVERKILO Enriquez UNIT #: [id number] ROOM: DOCTOR: RANGEL DAS MD BIRTHDATE: [birth year] Rangel Das MD CM:OPRECORD:OPERATIVE NOTE 0847 RANGEL DAS MD 04/25/18 0905 interface
[2018-04-25 07:46] VITALS: BP 143/67
[2018-04-25 08:39] VITALS: BP 106/58
[2018-04-25 08:55] VITALS: BP 106/69
[2018-04-25 09:10] VITALS: BP 129/72
== END | disposition home or self-care (01) ==
LOC: SDC 04-23 10:15
DX: T81.41XA Infection following a procedure, superficial incisional surgical site, initial encounter (principal); Z98.890 Other specified postprocedural states; Z88.1 Allergy status to other antibiotic agents; F41.9 Anxiety disorder, unspecified; F32.9 Major depressive disorder, single episode, unspecified; K21.9 Gastro-esophageal reflux disease without esophagitis; Z79.899 Other long term (current) drug therapy; Z90.49 Acquired absence of other specified parts of digestive tract; E11.40 Type 2 diabetes mellitus with diabetic neuropathy, unspecified; Z88.8 Allergy status to other drugs, medicaments and biological substances; E78.00 Pure hypercholesterolemia, unspecified; Z83.3 Family history of diabetes mellitus; Z82.49 Family history of ischemic heart disease and other diseases of the circulatory system; Z82.3 Family history of stroke

== ENCOUNTER → 2019-04-10 | Outpatient (CLI) | payer OTHER | END | disposition home or self-care (01) | LOC: CT 11:00 | DX: K42.9 Umbilical hernia without obstruction or gangrene (principal); R10.9 Unspecified abdominal pain; Z98.890 Other specified postprocedural states ==

== ENCOUNTER → 2019-05-07 | Outpatient (CLI) | payer OTHER ==
[2019-05-07 15:20] LABS: HEMATOCRIT 45.2 % (37.0-47.0); HEMOGLOBIN 15.3 g/dl (12.0-16.0); MEAN CELL VOLUME 95.8 fl (81.0-99.0); MEAN CORPUSCULAR HGB 32.4 pg (27.0-31.0); MEAN CORPUSCULAR HGB CONC 33.8 g/dl (33.0-37.0); MEAN PLATELET VOLUME 9.5 fl (9.6-12.3); RED BLOOD COUNT 4.72 10*6/uL (4.10-5.10); RED CELL DISTRI WIDTH 12.5 % (0-14.5)
[2019-05-07 15:52] LABS: ALBUMIN 3.9 gm/dl (3.1-4.5); BUN 14 mg/dl (7-24); CHLORIDE 104 mmol/L (98-107); CHOLESTEROL 232 mg/dL (<200); SGOT/AST 22 IU/L (3-35); SGPT/ALT 29 U/L (12-78); SODIUM 137 mmol/L (136-145); TRIGLYCERIDES 502 mg/dl (<150)
[2019-05-07 15:55] LABS: ALKALINE PHOSPHATASE 158 U/L (45-117); HDL CHOLESTEROL 33 mg/dl (40-60); TOTAL PROTEIN 7.6 gm/dL (6.4-8.2)
== END | disposition home or self-care (01) ==
LOC: LAB 14:36
PROVIDERS: Family Medicine
DX: I10 Essential (primary) hypertension (principal); E11.9 Type 2 diabetes mellitus without complications

== ENCOUNTER 2019-05-22 01:26 | Inpatient (IN) | payer OTHER ==
[2019-05-19 13:49] VITALS: BP 157/92
[2019-05-19 14:45] LABS: BASO # 0.1 10*3/uL (0.0-0.1); BASO % 0.9 % (0.0-1.0); EOS # 0.1 10*3/uL (0.0-0.4); EOS % 1.3 % (1.0-4.0); HEMATOCRIT 43.6 % (37.0-47.0); HEMOGLOBIN 14.6 g/dl (12.0-16.0); LYMPH # 2.7 10*3/uL (1.3-4.4); LYMPH % 26.3 % (27.0-41.0); MEAN CELL VOLUME 95.8 fl (81.0-99.0); MEAN CORPUSCULAR HGB 32.1 pg (27.0-31.0); MEAN CORPUSCULAR HGB CONC 33.5 g/dl (33.0-37.0); MEAN PLATELET VOLUME 9.4 fl (9.6-12.3); MONO # 0.6 10*3/uL (0.1-1.0); MONO % 5.7 % (3.0-9.0); NEUT # 6.8 10*3/uL (2.3-7.9); NEUT % 65.4 % (47.0-73.0); PLATELET COUNT AUTOMATED 282 10*3/uL (130-400); RED BLOOD COUNT 4.55 10*6/uL (4.10-5.10); RED CELL DISTRI WIDTH 12.6 % (0-14.5); WHITE BLOOD COUNT 10.4 10*3/uL (4.8-10.8)
[2019-05-19 14:49] LABS: BILIRUBIN NEGATIVE (NEGATIVE); BLOOD NEGATIVE (NEGATIVE); CLARITY SL CLOUDY (CLEAR); COLOR YELLOW (YELLOW); GLUCOSE 2+ (NEGATIVE); KETONE TRACE (NEGATIVE); LEUKO ESTERASE NEGATIVE (NEGATIVE); NITRITE NEGATIVE (NEGATIVE); UROBILINOGEN 0.2 E.U./dl (0.2-1.0)
[2019-05-19 14:55] LABS: RBC 0-2 rbc/hpf (0-2); WBC 0-2 wbc/hpf (0-5)
[2019-05-19 14:56] LABS: BACTERIA TRACE; EPITHELIAL CELLS 0-2
[2019-05-19 15:01] LABS: ACT PARTIAL THROMBO TIME 25.2 SECONDS (20.0-32.1); INTERNATIONAL NORM RATIO 0.9 (2.0-3.5)
[2019-05-19 15:05] LABS: BUN 17 mg/dl (7-24); CHLORIDE 106 mmol/L (98-107); CREATININE 0.93 mg/dL (0.55-1.02); POTASSIUM 3.7 mmol/L (3.5-5.1); SODIUM 139 mmol/L (136-145)
[~2019-05-22] VITALS: Ht 152.4 cm; Wt 80.3 kg
[2019-05-22] VITALS (18 sets, daily range): BP systolic 118–162; BP diastolic 62–93
[~2019-05-22 01:26] MED LIST changes: +LEVEMIR FL100 UNIT/1 SQ; +NYSTATIN CREAM15 GM T; +TIZANIDINE HCL4 MG PO
[2019-05-22] MEDS ORDERED: PERCOCET 5-3251 EACH PO (09:43)
[2019-05-22 23:43] LABS: BASO % 0.3 % (0.0-1.0); EOS # 0.1 10*3/uL (0.0-0.4); EOS % 1.2 % (1.0-4.0); HEMATOCRIT 40.9 % (37.0-47.0); HEMOGLOBIN 13.8 g/dl (12.0-16.0); LYMPH # 1.4 10*3/uL (1.3-4.4); LYMPH % 11.3 % (27.0-41.0); MEAN CELL VOLUME 94.9 fl (81.0-99.0); MEAN CORPUSCULAR HGB CONC 33.7 g/dl (33.0-37.0); MEAN PLATELET VOLUME 9.1 fl (9.6-12.3); MONO # 0.8 10*3/uL (0.1-1.0); MONO % 6.3 % (3.0-9.0); NEUT # 9.7 10*3/uL (2.3-7.9); NEUT % 80.6 % (47.0-73.0); PLATELET COUNT AUTOMATED 254 10*3/uL (130-400); RED BLOOD COUNT 4.31 10*6/uL (4.10-5.10); RED CELL DISTRI WIDTH 12.5 % (0-14.5)
[2019-05-23 01:00] VITALS: BP 150/94
[2019-05-23 07:25] LABS: CHLORIDE 102 mmol/L (98-107); POTASSIUM 3.6 mmol/L (3.5-5.1); SODIUM 138 mmol/L (136-145)
[2019-05-23 07:26] LABS: BASO % 0.2 % (0.0-1.0); EOS # 0.2 10*3/uL (0.0-0.4); EOS % 1.4 % (1.0-4.0); HEMOGLOBIN 13.9 g/dl (12.0-16.0); LYMPH # 1.2 10*3/uL (1.3-4.4); LYMPH % 10.4 % (27.0-41.0); MEAN CELL VOLUME 96.1 fl (81.0-99.0); MEAN CORPUSCULAR HGB 31.8 pg (27.0-31.0); MEAN CORPUSCULAR HGB CONC 33.1 g/dl (33.0-37.0); MEAN PLATELET VOLUME 9.7 fl (9.6-12.3); MONO # 0.7 10*3/uL (0.1-1.0); NEUT # 9.2 10*3/uL (2.3-7.9); NEUT % 81.7 % (47.0-73.0); PLATELET COUNT AUTOMATED 266 10*3/uL (130-400); RED BLOOD COUNT 4.37 10*6/uL (4.10-5.10); RED CELL DISTRI WIDTH 12.6 % (0-14.5); WHITE BLOOD COUNT 11.3 10*3/uL (4.8-10.8)
[2019-05-23 07:31] LABS: BUN 8 mg/dl (7-24); CREATININE 0.81 mg/dL (0.55-1.02)
[2019-05-23 08:00] VITALS: BP 124/75
[2019-05-23 12:00] VITALS: BP 135/90
[2019-05-23 16:00] VITALS: BP 130/82
[2019-05-23 20:00] VITALS: BP 158/94
[2019-05-24] VITALS: BP 137/91
[2019-05-24 06:27] LABS: BASO % 0.3 % (0.0-1.0); EOS # 0.3 10*3/uL (0.0-0.4); EOS % 2.9 % (1.0-4.0); HEMATOCRIT 41.6 % (37.0-47.0); HEMOGLOBIN 13.8 g/dl (12.0-16.0); LYMPH # 1.8 10*3/uL (1.3-4.4); LYMPH % 18.8 % (27.0-41.0); MEAN CELL VOLUME 97.2 fl (81.0-99.0); MEAN CORPUSCULAR HGB 32.2 pg (27.0-31.0); MEAN CORPUSCULAR HGB CONC 33.2 g/dl (33.0-37.0); MEAN PLATELET VOLUME 9.4 fl (9.6-12.3); MONO # 0.8 10*3/uL (0.1-1.0); MONO % 8.1 % (3.0-9.0); NEUT # 6.5 10*3/uL (2.3-7.9); NEUT % 69.5 % (47.0-73.0); PLATELET COUNT AUTOMATED 246 10*3/uL (130-400); RED BLOOD COUNT 4.28 10*6/uL (4.10-5.10); RED CELL DISTRI WIDTH 12.9 % (0-14.5); WHITE BLOOD COUNT 9.3 10*3/uL (4.8-10.8)
[2019-05-24 06:47] LABS: BUN 6 mg/dl (7-24); CHLORIDE 102 mmol/L (98-107); CREATININE 0.72 mg/dL (0.55-1.02); SODIUM 138 mmol/L (136-145)
[2019-05-24 08:00] VITALS: BP 138/85
[2019-05-24 12:00] VITALS: BP 164/100
[2019-05-24 16:00] VITALS: BP 135/66
[2019-05-24 20:00] VITALS: BP 126/80
[2019-05-25] VITALS: BP 121/69
[2019-05-25 08:00] VITALS: BP 126/80
[2019-05-25] MEDS ORDERED: OMNICEF300 MG PO (10:46)
[2019-05-25] MEDS ORDERED: ZITHROMAX250 MG PO (10:46)
== END 2019-05-25 14:24 | disposition home or self-care (01) | DRG 227 ==
LOC: SDC 01:26 → 5E 13:23
PROVIDERS: Family Medicine; Hospitalist; Surgery; ADMIT Emergency Medicine
PROC: 0WUF4JZ Supplement Abdominal Wall with Synthetic Substitute, Percutaneous Endoscopic Approach (ICD-10-PCS; principal; 2019-05-22)
DX: K43.9 Ventral hernia without obstruction or gangrene (principal); G89.29 Other chronic pain; M54.9 Dorsalgia, unspecified; K21.9 Gastro-esophageal reflux disease without esophagitis; E78.5 Hyperlipidemia, unspecified; E03.9 Hypothyroidism, unspecified; E11.65 Type 2 diabetes mellitus with hyperglycemia; E66.01 Morbid (severe) obesity due to excess calories; J96.01 Acute respiratory failure with hypoxia; J18.9 Pneumonia, unspecified organism; N32.81 Overactive bladder; R00.0 Tachycardia, unspecified; M19.90 Unspecified osteoarthritis, unspecified site; Z90.49 Acquired absence of other specified parts of digestive tract; Z90.710 Acquired absence of both cervix and uterus; Z82.49 Family history of ischemic heart disease and other diseases of the circulatory system; Z80.1 Family history of malignant neoplasm of trachea, bronchus and lung; Z82.3 Family history of stroke; Z84.89 Family history of other specified conditions; Z88.2 Allergy status to sulfonamides; Z88.8 Allergy status to other drugs, medicaments and biological substances; Z79.4 Long term (current) use of insulin; Z79.899 Other long term (current) drug therapy; Z68.34 Body mass index [BMI] 34.0-34.9, adult

== ENCOUNTER → 2019-05-28 | Outpatient (CLI) | payer OTHER ==
[~2019-05-28] MED LIST changes: +OMNICEF300 MG PO; +PERCOCET 5-3251 EACH PO; +ZITHROMAX250 MG PO
[2019-05-28 14:58] LABS: HEMOGLOBIN 14.7 g/dl (12.0-16.0); MEAN CELL VOLUME 94.8 fl (81.0-99.0); MEAN CORPUSCULAR HGB 31.7 pg (27.0-31.0); MEAN CORPUSCULAR HGB CONC 33.4 g/dl (33.0-37.0); MEAN PLATELET VOLUME 8.9 fl (9.6-12.3); RED BLOOD COUNT 4.64 10*6/uL (4.10-5.10); RED CELL DISTRI WIDTH 12.5 % (0-14.5); WHITE BLOOD COUNT 9.6 10*3/uL (4.8-10.8)
[2019-05-28 15:31] LABS: ALBUMIN 3.5 gm/dl (3.1-4.5); ALKALINE PHOSPHATASE 147 U/L (45-117); BUN 11 mg/dl (7-24); CHLORIDE 104 mmol/L (98-107); CREATININE 0.85 mg/dL (0.55-1.02); POTASSIUM 3.7 mmol/L (3.5-5.1); SGOT/AST 51 IU/L (3-35); SGPT/ALT 60 U/L (12-78); SODIUM 138 mmol/L (136-145); TOTAL PROTEIN 7.8 gm/dL (6.4-8.2)
== END | disposition home or self-care (01) ==
LOC: LAB 14:33
PROVIDERS: Family Medicine
DX: I10 Essential (primary) hypertension (principal); R06.02 Shortness of breath; D64.9 Anemia, unspecified; J18.9 Pneumonia, unspecified organism

== ENCOUNTER 2019-07-03 14:23 | Emergency (ER) | payer OTHER ==
[~2019-07-03] VITALS: Ht 152.4 cm; Wt 80.3 kg
[2019-07-03 15:05] LABS: BASO # 0.2 10*3/uL (0.0-0.1); BASO % 1.8 % (0.0-1.0); EOS # 0.2 10*3/uL (0.0-0.4); EOS % 1.8 % (1.0-4.0); HEMATOCRIT 47.9 % (37.0-47.0); LYMPH # 3.2 10*3/uL (1.3-4.4); LYMPH % 30.7 % (27.0-41.0); MEAN CELL VOLUME 94.1 fl (81.0-99.0); MEAN CORPUSCULAR HGB 32.6 pg (27.0-31.0); MEAN CORPUSCULAR HGB CONC 34.7 g/dl (33.0-37.0); MEAN PLATELET VOLUME 8.9 fl (9.6-12.3); MONO # 0.8 10*3/uL (0.1-1.0); MONO % 7.8 % (3.0-9.0); NEUT # 6.1 10*3/uL (2.3-7.9); NEUT % 57.4 % (47.0-73.0); PLATELET COUNT AUTOMATED 322 10*3/uL (130-400); RED BLOOD COUNT 5.09 10*6/uL (4.10-5.10); RED CELL DISTRI WIDTH 12.5 % (0-14.5); WHITE BLOOD COUNT 10.6 10*3/uL (4.8-10.8)
[2019-07-03 15:13] LABS: BILIRUBIN NEGATIVE (NEGATIVE); BLOOD NEGATIVE (NEGATIVE); CLARITY CLEAR (CLEAR); COLOR YELLOW (YELLOW); GLUCOSE NEGATIVE (NEGATIVE); KETONE NEGATIVE (NEGATIVE); LEUKO ESTERASE NEGATIVE (NEGATIVE); NITRITE NEGATIVE (NEGATIVE); UROBILINOGEN 0.2 E.U./dl (0.2-1.0)
[2019-07-03 15:19] LABS: BACTERIA 1+; EPITHELIAL CELLS 0-2; WBC 0-2 wbc/hpf (0-5)
[2019-07-03 15:20] LABS: ALBUMIN 4.1 gm/dl (3.1-4.5); ALKALINE PHOSPHATASE 149 U/L (45-117); BUN 17 mg/dl (7-24); CHLORIDE 106 mmol/L (98-107); SGOT/AST 26 IU/L (3-35); SGPT/ALT 32 U/L (12-78); SODIUM 136 mmol/L (136-145)
[2019-07-03] MEDS ORDERED: VOLTAREN100 GM T (17:10)
[2019-07-03 17:28] VITALS: BP 165/81
== END 2019-07-03 17:45 | disposition home or self-care (01) ==
LOC: ED 14:23
PROVIDERS: Emergency Medicine
DX: M54.5 Low back pain (principal); E11.9 Type 2 diabetes mellitus without complications; K21.9 Gastro-esophageal reflux disease without esophagitis; E78.5 Hyperlipidemia, unspecified; E78.00 Pure hypercholesterolemia, unspecified; E03.9 Hypothyroidism, unspecified; Z88.8 Allergy status to other drugs, medicaments and biological substances; Z88.2 Allergy status to sulfonamides; Z79.899 Other long term (current) drug therapy; Z90.49 Acquired absence of other specified parts of digestive tract; Z90.710 Acquired absence of both cervix and uterus; Z79.4 Long term (current) use of insulin

== ENCOUNTER → 2019-07-24 | Outpatient (CLI) | payer MEDICARE ==
[~2019-07-24] MED LIST changes: +VOLTAREN100 GM T
== END | disposition home or self-care (01) ==
LOC: MAMMO 07-14 11:00
DX: Z12.31 Encounter for screening mammogram for malignant neoplasm of breast (principal)

== ENCOUNTER → 2019-11-25 | Outpatient (CLI) | payer MEDICARE, MEDICAID | END | disposition home or self-care (01) | LOC: COVID19 11:20 | PROVIDERS: ATTEND Family Medicine | DX: Z20.828 Contact with and (suspected) exposure to other viral communicable diseases (principal) ==

== ENCOUNTER → 2019-12-26 | Outpatient (CLI) | payer MEDICARE, MEDICAID ==
[2019-12-26 13:12] LABS: HEMATOCRIT 45.9 % (37.0-47.0); MEAN CORPUSCULAR HGB 31.3 pg (27.0-31.0); MEAN CORPUSCULAR HGB CONC 32.9 g/dl (33.0-37.0); MEAN PLATELET VOLUME 9.2 fl (9.6-12.3); RED BLOOD COUNT 4.83 10*6/uL (4.10-5.10); RED CELL DISTRI WIDTH 12.3 % (0-14.5); WHITE BLOOD COUNT 8.2 10*3/uL (4.8-10.8)
[2019-12-26 13:41] LABS: ALBUMIN 4.3 gm/dl (3.1-4.5); ALKALINE PHOSPHATASE 160 U/L (45-117); BUN 18 mg/dl (7-24); CHLORIDE 105 mmol/L (98-107); CHOLESTEROL 265 mg/dL (<200); CREATININE 0.87 mg/dL (0.55-1.02); HDL CHOLESTEROL 33 mg/dl (40-60); POTASSIUM 4.1 mmol/L (3.5-5.1); SGOT/AST 26 IU/L (3-35); SGPT/ALT 31 U/L (12-78); SODIUM 138 mmol/L (136-145); TOTAL PROTEIN 8.4 gm/dL (6.4-8.2); TRIGLYCERIDES 723 mg/dl (<150)
== END | disposition home or self-care (01) ==
LOC: LAB 12:45
PROVIDERS: ATTEND Nurse Practitioner Family
DX: I10 Essential (primary) hypertension (principal); E11.9 Type 2 diabetes mellitus without complications; E55.9 Vitamin D deficiency, unspecified; E78.00 Pure hypercholesterolemia, unspecified

== ENCOUNTER → 2020-01-01 | Outpatient (CLI) | payer MEDICARE, MEDICAID ==
[2020-01-02 06:10] LABS: TOTAL PROTEIN, SERUM 7.1 g/dL (6.0-8.5)
[2020-01-02 15:10] LABS: A/G RATIO 1.2 (0.7-1.7); ALBUMIN 3.8 g/dL (2.9-4.4); ALPHA-1-GLOBULIN 0.2 g/dL (0.0-0.4); ALPHA-2-GLOBULIN 0.9 g/dL (0.4-1.0); BETA GLOBULIN 1.3 g/dL (0.7-1.3); GAMMA GLOBULIN 0.9 g/dL (0.4-1.8); GLOBULIN, TOTAL 3.3 g/dL (2.2-3.9); M-SPIKE Not Observed g/dL (Not Observed)
== END | disposition home or self-care (01) ==
LOC: LAB 13:40
PROVIDERS: ATTEND Family Medicine
DX: E03.9 Hypothyroidism, unspecified (principal); E11.9 Type 2 diabetes mellitus without complications; E88.09 Other disorders of plasma-protein metabolism, not elsewhere classified

== ENCOUNTER → 2020-03-16 | Outpatient (CLI) | payer MEDICARE, MEDICAID | END | disposition home or self-care (01) | LOC: COVID19 12:31 | PROVIDERS: ATTEND Nurse Practitioner Family | DX: Z20.822 Contact with and (suspected) exposure to COVID-19 (principal) ==

== ENCOUNTER → 2020-03-30 | Outpatient (CLI) | payer MEDICARE, MEDICAID ==
[2020-03-30 12:01] LABS: MEAN CORPUSCULAR HGB 32.1 pg (27.0-31.0); MEAN CORPUSCULAR HGB CONC 33.5 g/dl (33.0-37.0); MEAN PLATELET VOLUME 9.3 fl (9.6-12.3); RED BLOOD COUNT 4.48 10*6/uL (4.10-5.10); RED CELL DISTRI WIDTH 13.1 % (0-14.5); WHITE BLOOD COUNT 7.3 10*3/uL (4.8-10.8)
[2020-03-30 12:25] LABS: ALBUMIN 4.1 gm/dl (3.1-4.5); BUN 20 mg/dl (7-24); CHLORIDE 103 mmol/L (98-107); CREATININE 0.82 mg/dL (0.55-1.02); POTASSIUM 4.4 mmol/L (3.5-5.1); SGOT/AST 14 IU/L (3-35); SGPT/ALT 28 U/L (12-78); SODIUM 136 mmol/L (136-145); TOTAL PROTEIN 7.7 gm/dL (6.4-8.2)
[2020-03-30 12:34] LABS: ALKALINE PHOSPHATASE 145 U/L (45-117); FREE T4 0.75 ng/dl (0.76-1.46)
== END | disposition home or self-care (01) ==
LOC: LAB 11:34
PROVIDERS: ATTEND Family Medicine
DX: E03.9 Hypothyroidism, unspecified (principal); R26.9 Unspecified abnormalities of gait and mobility; F41.1 Generalized anxiety disorder; E74.00 Glycogen storage disease, unspecified

== ENCOUNTER → 2020-06-24 | Outpatient (CLI) | payer MEDICARE, MEDICAID ==
[2020-06-24 15:03] LABS: FREE T4 0.89 ng/dl (0.76-1.46); THYROID STIM HORMONE (HS) 1.25 uIU/ml (0.358-4.75)
[2020-06-25 08:08] LABS: FOLLICLE STIMULATING HORMONE 71.3 mIU/mL (.); LUTEINIZING HORMONE 33.2 mIU/mL (.)
== END | disposition home or self-care (01) ==
LOC: LAB 13:57
PROVIDERS: ATTEND Family Medicine
DX: E03.9 Hypothyroidism, unspecified (principal); R53.83 Other fatigue; R61 Generalized hyperhidrosis

== ENCOUNTER 2020-09-28 19:53 | Inpatient (IN) | payer MEDICARE, MEDICAID ==
[~2020-09-28] VITALS: Ht 152.4 cm; Wt 77.1 kg
[~2020-09-28 19:53] MED LIST changes: +BUSPAR5 MG PO; +COREG12.5 M1 PO; +CYMBALTA30 MG PO; +XARELTO10 MG PO
[2020-09-28 20:02] VITALS: BP 157/106
[2020-09-28 21:02] LABS: BASO # 0.1 10*3/uL (0.0-0.1); BASO % 0.8 % (0.0-1.0); EOS # 0.1 10*3/uL (0.0-0.4); LYMPH # 1.7 10*3/uL (1.3-4.4); LYMPH % 22.8 % (27.0-41.0); MEAN CELL VOLUME 92.6 fl (81.0-99.0); MEAN CORPUSCULAR HGB 31.7 pg (27.0-31.0); MEAN CORPUSCULAR HGB CONC 34.3 g/dl (33.0-37.0); MEAN PLATELET VOLUME 9.1 fl (9.6-12.3); MONO # 0.6 10*3/uL (0.1-1.0); MONO % 7.6 % (3.0-9.0); NEUT % 67.5 % (47.0-73.0); PLATELET COUNT AUTOMATED 318 10*3/uL (130-400); RED BLOOD COUNT 4.32 10*6/uL (4.10-5.10); RED CELL DISTRI WIDTH 12.8 % (0-14.5); WHITE BLOOD COUNT 7.3 10*3/uL (4.8-10.8)
[2020-09-28 21:18] LABS: ALBUMIN 3.9 gm/dl (3.1-4.5); CREATININE 2.09 mg/dL (0.55-1.02); TOTAL PROTEIN 8.2 gm/dL (6.4-8.2)
[2020-09-29] VITALS (7 sets, daily range): BP systolic 118–198; BP diastolic 74–118
[2020-09-29] MEDS ORDERED: HYDROCODON-ACE1 EAC1 PO (02:17)
[2020-09-29] MEDS ORDERED: HYDROCODONE-AC1 EAC1 PO (02:37)
[2020-09-29 05:16] LABS: CREATININE 1.69 mg/dL (0.55-1.02); POTASSIUM 3.7 mmol/L (3.5-5.1)
[2020-09-30] VITALS: BP 109/61
[2020-09-30 08:00] VITALS: BP 165/92
[2020-10-22] MEDS ORDERED: VISTARIL50 MG PO (09:12)
[2020-10-27] MEDS ORDERED: DOXYCYCLINE100 M3 PO (12:04)
[2020-10-27] MEDS ORDERED: TRAMADOL HCL50 MG PO (12:04)
[2020-10-27] MEDS ORDERED: XARELTO10 MG PO (12:04)
== END 2020-09-30 10:00 | disposition home or self-care (01) | DRG 73 ==
LOC: ED 19:53 → EDHOLD 22:49 → 4E 22:49
PROVIDERS: Physician Assistant; ADMIT Internal Medicine; ATTEND Internal Medicine
DX: E11.43 Type 2 diabetes mellitus with diabetic autonomic (poly)neuropathy (principal); N17.0 Acute kidney failure with tubular necrosis; K31.84 Gastroparesis; A08.4 Viral intestinal infection, unspecified; E03.9 Hypothyroidism, unspecified; K21.9 Gastro-esophageal reflux disease without esophagitis; G89.29 Other chronic pain; N28.1 Cyst of kidney, acquired; Z20.822 Contact with and (suspected) exposure to COVID-19; Z88.8 Allergy status to other drugs, medicaments and biological substances; Z88.2 Allergy status to sulfonamides; Z90.710 Acquired absence of both cervix and uterus; Z90.49 Acquired absence of other specified parts of digestive tract; Z82.49 Family history of ischemic heart disease and other diseases of the circulatory system; Z80.1 Family history of malignant neoplasm of trachea, bronchus and lung

== ENCOUNTER → 2020-10-22 | Outpatient (CLI) | payer MEDICARE, MEDICAID ==
[~2020-10-22] MED LIST changes: +DOXYCYCLINE100 M3 PO; +HYDROCODON-ACE1 EAC1 PO; +HYDROCODONE-AC1 EAC1 PO; +VISTARIL50 MG PO
== END | disposition home or self-care (01) ==
LOC: LAB 13:56
PROVIDERS: ATTEND Podiatrist
DX: Z01.818 Encounter for other preprocedural examination (principal); Z20.822 Contact with and (suspected) exposure to COVID-19

== ENCOUNTER → 2020-10-27 | Day surgery (SDC) | payer MEDICARE, MEDICAID ==
[~2020-10-27] VITALS: Ht 614.6 cm
[2020-10-27 11:58] VITALS: BP 133/95
[2020-10-27 12:05] VITALS: BP 130/74
[2020-10-27 12:13] VITALS: BP 131/89
[2020-10-27 12:28] VITALS: BP 159/88
[2020-10-27 14:48] VITALS: BP 133/95
== END | disposition home or self-care (01) ==
LOC: SDC 10-22 08:00
PROVIDERS: ATTEND Podiatrist
DX: T84.84XA Pain due to internal orthopedic prosthetic devices, implants and grafts, initial encounter (principal); Y83.8 Other surgical procedures as the cause of abnormal reaction of the patient, or of later complication, without mention of misadventure at the time of the procedure

== ENCOUNTER → 2020-11-25 | Outpatient (CLI) | payer MEDICARE, MEDICAID | END | disposition home or self-care (01) | LOC: US 11:30 | PROVIDERS: ATTEND Podiatrist | DX: R60.0 Localized edema (principal) ==

== ENCOUNTER 2021-01-02 12:17 | Inpatient (IN) | payer MEDICARE, MEDICAID ==
[2021-01-02 12:29] VITALS: BP 140/94
[2021-01-02 12:58] LABS: BASO # 0.1 10*3/uL (0.0-0.1); BASO % 0.7 % (0.0-1.0); HEMATOCRIT 44.5 % (37.0-47.0); LYMPH # 2.4 10*3/uL (1.3-4.4); LYMPH % 17.9 % (27.0-41.0); MEAN CELL VOLUME 92.3 fl (81.0-99.0); MEAN CORPUSCULAR HGB 31.5 pg (27.0-31.0); MEAN CORPUSCULAR HGB CONC 34.2 g/dl (33.0-37.0); MEAN PLATELET VOLUME 9.8 fl (9.6-12.3); MONO # 0.6 10*3/uL (0.1-1.0); MONO % 4.6 % (3.0-9.0); NEUT # 10.3 10*3/uL (2.3-7.9); NEUT % 76.4 % (47.0-73.0); PLATELET COUNT AUTOMATED 397 10*3/uL (130-400); RED BLOOD COUNT 4.82 10*6/uL (4.10-5.10); RED CELL DISTRI WIDTH 15.2 % (0-14.5); WHITE BLOOD COUNT 13.6 10*3/uL (4.8-10.8)
[2021-01-02 13:20] LABS: ALBUMIN 4.3 gm/dl (3.1-4.5); CREATININE 1.53 mg/dL (0.55-1.02); POTASSIUM 3.2 mmol/L (3.5-5.1); TOTAL PROTEIN 8.8 gm/dL (6.4-8.2)
[2021-01-02 13:29] LABS: TROPONIN I 0.106 ng/ml (<0.045)
[2021-01-02 13:30] VITALS: BP 116/80
[2021-01-02 14:00] LABS: ACT PARTIAL THROMBO TIME 25.4 SECONDS (20.0-32.1)
[2021-01-02 15:37] VITALS: BP 136/84
[2021-01-02 18:03] VITALS: BP 155/90
[2021-01-02 20:04] LABS: BUN 15 mg/dl (7-24); CHLORIDE 112 mmol/L (98-107); CREATININE 0.87 mg/dL (0.55-1.02); SODIUM 144 mmol/L (136-145)
[2021-01-03] VITALS (8 sets, daily range): BP systolic 172–188; BP diastolic 80–102
[2021-01-03 06:37] LABS: BUN 11 mg/dl (7-24); CHLORIDE 111 mmol/L (98-107); CREATININE 0.77 mg/dL (0.55-1.02); POTASSIUM 3.6 mmol/L (3.5-5.1); SODIUM 143 mmol/L (136-145)
[2021-01-04] VITALS: BP 196/118
[2021-01-04 04:00] VITALS: BP 168/80
[2021-01-04 08:00] VITALS: BP 182/106
[2021-01-04 09:54] VITALS: BP 158/98
[2021-01-04 11:40] LABS: BILIRUBIN Negative (Negative); BLOOD Negative (Negative); CLARITY Cloudy (Clear); COLOR Yellow (Yellow); GLUCOSE Trace (Negative); KETONE Negative (Negative); LEUKO ESTERASE Negative (Negative); NITRITE Negative (Negative); PH 5.5 (4.5-8.0); UROBILINOGEN 0.2 E.U./dl (0.0-1.0)
[2021-01-04 16:00] VITALS: BP 148/86; BP 98/52
[2021-01-04 20:00] VITALS: BP 168/93
[2021-01-05] VITALS: BP 124/75
[2021-01-05 08:00] VITALS: BP 164/95
[2021-01-05] MEDS ORDERED: HYDRALAZINE HYD50 MG PO (08:58)
[2021-01-05 09:33] LABS: BUN 8 mg/dl (7-24); CHLORIDE 104 mmol/L (98-107); CREATININE 0.77 mg/dL (0.55-1.02); POTASSIUM 3.2 mmol/L (3.5-5.1); SODIUM 139 mmol/L (136-145)
== END 2021-01-05 11:46 | disposition home or self-care (01) | DRG 638 ==
LOC: ED 12:17 → 4E 15:23 → EDHOLD 15:23 → 4E 01-03 20:43
PROVIDERS: Emergency Medicine; ADMIT Internal Medicine; ATTEND Internal Medicine
PROC: 4A02XM4 Measurement of Cardiac Total Activity, External Approach (ICD-10-PCS; principal; 2021-01-04)
PROC: 3E073KZ Introduction of Other Diagnostic Substance into Coronary Artery, Percutaneous Approach (ICD-10-PCS; 2021-01-04)
DX: E11.10 Type 2 diabetes mellitus with ketoacidosis without coma (principal); N17.9 Acute kidney failure, unspecified; K76.0 Fatty (change of) liver, not elsewhere classified; E87.6 Hypokalemia; R07.89 Other chest pain; E03.9 Hypothyroidism, unspecified; G89.29 Other chronic pain; M54.50 Low back pain, unspecified; N28.1 Cyst of kidney, acquired; I11.9 Hypertensive heart disease without heart failure; Z82.49 Family history of ischemic heart disease and other diseases of the circulatory system; K52.9 Noninfective gastroenteritis and colitis, unspecified; Z90.49 Acquired absence of other specified parts of digestive tract; Z90.710 Acquired absence of both cervix and uterus; Z80.1 Family history of malignant neoplasm of trachea, bronchus and lung

== ENCOUNTER → 2021-07-20 | Outpatient (CLI) | payer MEDICARE, MEDICAID ==
[~2021-07-20] MED LIST changes: +HYDRALAZINE HYD50 MG PO
[2021-07-20 12:27] LABS: ALKALINE PHOSPHATASE 149 U/L (45-117); BUN 12 mg/dl (7-24); CHLORIDE 105 mmol/L (98-107); CHOLESTEROL 240 mg/dL (<200); CPK 97 U/L (26-192); CREATININE 0.86 mg/dL (0.55-1.02); LDL CHOLESTEROL 145 mg/dL (9-159); POTASSIUM 4.3 mmol/L (3.5-5.1); SGOT/AST 41 IU/L (3-35); SGPT/ALT 36 U/L (12-78); SODIUM 136 mmol/L (136-145); TOTAL PROTEIN 7.3 gm/dL (6.4-8.2); TRIGLYCERIDES 302 mg/dl (<150)
== END | disposition home or self-care (01) ==
LOC: LAB 11:54
PROVIDERS: ATTEND Family Medicine
DX: E11.9 Type 2 diabetes mellitus without complications (principal); I10 Essential (primary) hypertension; E78.00 Pure hypercholesterolemia, unspecified

== ENCOUNTER → 2021-09-29 | Outpatient (CLI) | payer MEDICARE, MEDICAID ==
[2021-09-29 12:00] LABS: HEMATOCRIT 39.3 % (37.0-47.0); MEAN CELL VOLUME 93.6 fl (81.0-99.0); MEAN CORPUSCULAR HGB 31.9 pg (27.0-31.0); MEAN CORPUSCULAR HGB CONC 34.1 g/dl (33.0-37.0); MEAN PLATELET VOLUME 9.5 fl (9.6-12.3); RED BLOOD COUNT 4.2 10*6/uL (4.10-5.10); WHITE BLOOD COUNT 7.4 10*3/uL (4.8-10.8)
[2021-09-29 12:18] LABS: CREATININE 1.26 mg/dL (0.55-1.02); POTASSIUM 4.4 mmol/L (3.5-5.1); TOTAL PROTEIN 7.1 gm/dL (6.4-8.2)
== END | disposition home or self-care (01) ==
LOC: LAB 11:45
PROVIDERS: ATTEND Family Medicine
DX: I10 Essential (primary) hypertension (principal); E11.9 Type 2 diabetes mellitus without complications; E78.00 Pure hypercholesterolemia, unspecified; K21.9 Gastro-esophageal reflux disease without esophagitis

== ENCOUNTER → 2021-11-02 | Day surgery (SDC) | payer MEDICARE, MEDICAID ==
[2021-10-28 14:47] VITALS: BP 137/86
[2021-10-28 15:51] LABS: BASO # 0.1 10*3/uL (0.0-0.1); BASO % 1.2 % (0.0-1.0); EOS # 0.3 10*3/uL (0.0-0.4); EOS % 4.5 % (1.0-4.0); HEMATOCRIT 41.6 % (37.0-47.0); LYMPH # 3.2 10*3/uL (1.3-4.4); MEAN CELL VOLUME 94.8 fl (81.0-99.0); MEAN CORPUSCULAR HGB 32.3 pg (27.0-31.0); MEAN CORPUSCULAR HGB CONC 34.1 g/dl (33.0-37.0); MEAN PLATELET VOLUME 8.8 fl (9.6-12.3); MONO # 0.6 10*3/uL (0.1-1.0); MONO % 8.3 % (3.0-9.0); NEUT # 3.1 10*3/uL (2.3-7.9); NEUT % 42.7 % (47.0-73.0); PLATELET COUNT AUTOMATED 305 10*3/uL (130-400); RED BLOOD COUNT 4.39 10*6/uL (4.10-5.10); RED CELL DISTRI WIDTH 13.6 % (0-14.5); WHITE BLOOD COUNT 7.3 10*3/uL (4.8-10.8)
[2021-10-28 16:15] LABS: BUN 12 mg/dl (7-24); CHLORIDE 103 mmol/L (98-107); CREATININE 0.81 mg/dL (0.55-1.02); POTASSIUM 4.2 mmol/L (3.5-5.1); SODIUM 140 mmol/L (136-145)
[~2021-11-02] VITALS: Ht 152.4 cm; Wt 82.6 kg
[~2021-11-02] MED LIST changes: +AMARYL4 MG PO; +TRULICITY3 MG/0.5 M SQ
[2021-11-02 08:29] VITALS: BP 140/89
[2021-11-02 12:40] VITALS: BP 125/88
[2021-11-02 13:10] VITALS: BP 142/88
[2021-11-02 13:25] VITALS: BP 142/90
[2021-11-02 13:55] VITALS: BP 135/90
[2021-11-02 14:10] VITALS: BP 134/87
== END | disposition home or self-care (01) ==
LOC: SDC 10-27 13:15
PROVIDERS: ATTEND Podiatrist
DX: T84.84XA Pain due to internal orthopedic prosthetic devices, implants and grafts, initial encounter (principal); M19.072 Primary osteoarthritis, left ankle and foot; E03.9 Hypothyroidism, unspecified; I25.2 Old myocardial infarction; E11.9 Type 2 diabetes mellitus without complications; F41.9 Anxiety disorder, unspecified; F32.9 Major depressive disorder, single episode, unspecified; Y82.8 Other medical devices associated with adverse incidents; M65.872 Other synovitis and tenosynovitis, left ankle and foot

== ENCOUNTER → 2022-05-22 | Outpatient (CLI) | payer MEDICARE, MEDICAID ==
[2022-05-22 17:24] LABS: HEMATOCRIT 41.5 % (37.0-47.0); MEAN CELL VOLUME 95.2 fl (81.0-99.0); MEAN CORPUSCULAR HGB 32.1 pg (27.0-31.0); MEAN CORPUSCULAR HGB CONC 33.7 g/dl (33.0-37.0); RED BLOOD COUNT 4.36 10*6/uL (4.10-5.10); RED CELL DISTRI WIDTH 13.2 % (0-14.5); WHITE BLOOD COUNT 10.3 10*3/uL (4.8-10.8)
[2022-05-22 17:43] LABS: ALKALINE PHOSPHATASE 164 U/L (46-116); BUN 12 mg/dl (9-23); CHLORIDE 99 mmol/L (98-107); CHOLESTEROL 243 mg/dL (<200); LDL CHOLESTEROL 130 mg/dL (9-159); POTASSIUM 4.3 mmol/L (3.4-5.1); SGPT/ALT 29 U/L (10-49); THYROID STIM HORMONE (HS) 2.114 uIU/ml (0.550-4.780); TOTAL PROTEIN 7.4 gm/dL (6.0-8.0); TRIGLYCERIDES 349 mg/dl (<150)
== END | disposition home or self-care (01) ==
LOC: LAB 16:44
PROVIDERS: ATTEND Family Medicine
DX: I10 Essential (primary) hypertension (principal); E11.9 Type 2 diabetes mellitus without complications; E78.00 Pure hypercholesterolemia, unspecified; I25.10 Atherosclerotic heart disease of native coronary artery without angina pectoris

== ENCOUNTER → 2022-07-17 | Outpatient (CLI) | payer MEDICARE, MEDICAID | END | disposition home or self-care (01) | LOC: MRI 02:09 | PROVIDERS: ATTEND Podiatrist Foot & Ankle Surgery | DX: M19.072 Primary osteoarthritis, left ankle and foot (principal); M76.72 Peroneal tendinitis, left leg; R60.0 Localized edema ==

== ENCOUNTER → 2022-07-31 | Outpatient (CLI) | payer MEDICARE, MEDICAID ==
[2022-07-31 12:42] LABS: MEAN CORPUSCULAR HGB 32.2 pg (27.0-31.0); MEAN CORPUSCULAR HGB CONC 32.9 g/dl (33.0-37.0); RED BLOOD COUNT 4.59 10*6/uL (4.10-5.10); RED CELL DISTRI WIDTH 13.4 % (0-14.5); WHITE BLOOD COUNT 8.8 10*3/uL (4.8-10.8)
[2022-07-31 13:11] LABS: ALKALINE PHOSPHATASE 170 U/L (46-116); BUN 10 mg/dl (9-23); CHLORIDE 104 mmol/L (98-107); CHOLESTEROL 243 mg/dL (<200); LDL CHOLESTEROL 161 mg/dL (9-159); POTASSIUM 4.3 mmol/L (3.4-5.1); SGPT/ALT 17 U/L (10-49); TOTAL PROTEIN 7.2 gm/dL (6.0-8.0); TRIGLYCERIDES 234 mg/dl (<150)
== END | disposition home or self-care (01) ==
LOC: LAB 11:48
PROVIDERS: ATTEND Family Medicine
DX: Z01.818 Encounter for other preprocedural examination (principal); E11.9 Type 2 diabetes mellitus without complications; E78.00 Pure hypercholesterolemia, unspecified; Z79.899 Other long term (current) drug therapy

== ENCOUNTER → 2022-08-23 | Outpatient (CLI) | payer MEDICARE, MEDICAID ==
[2022-08-23 13:03] LABS: BASO # 0.1 10*3/uL (0.0-0.1); BASO % 1.4 % (0.0-1.0); BILIRUBIN Negative (Negative); BLOOD Negative (Negative); CLARITY Clear (Clear); COLOR Yellow (Yellow); EOS # 0.3 10*3/uL (0.0-0.4); EOS % 3.8 % (1.0-4.0); GLUCOSE 3+ (Negative); HEMATOCRIT 47.5 % (37.0-47.0); KETONE Negative (Negative); LEUKO ESTERASE 1+ (Negative); LYMPH # 3.7 10*3/uL (1.3-4.4); LYMPH % 41.3 % (27.0-41.0); MEAN CELL VOLUME 96.7 fl (81.0-99.0); MEAN CORPUSCULAR HGB 31.8 pg (27.0-31.0); MEAN CORPUSCULAR HGB CONC 32.8 g/dl (33.0-37.0); MEAN PLATELET VOLUME 9.3 fl (9.6-12.3); MONO # 0.7 10*3/uL (0.1-1.0); MONO % 7.3 % (3.0-9.0); NEUT # 4.2 10*3/uL (2.3-7.9); NITRITE Negative (Negative); PLATELET COUNT AUTOMATED 318 10*3/uL (130-400); RED BLOOD COUNT 4.91 10*6/uL (4.10-5.10); SPECIFIC GRAVITY >= 1.030 (1.001-1.030)
[2022-08-23 13:17] LABS: ACT PARTIAL THROMBO TIME 27.5 SECONDS (20.0-32.1)
[2022-08-23 13:26] LABS: BUN 10 mg/dl (9-23); CHLORIDE 103 mmol/L (98-107); POTASSIUM 4.3 mmol/L (3.4-5.1)
[2022-08-23 13:46] LABS: BACTERIA 3+; EPITHELIAL CELLS TNTC; YEAST TRACE
== END | disposition home or self-care (01) ==
LOC: LAB 12:43
PROVIDERS: Anesthesiology; ATTEND Anesthesiology Addiction Medicine
DX: Z01.812 Encounter for preprocedural laboratory examination (principal); M79.606 Pain in leg, unspecified; M79.609 Pain in unspecified limb; M54.9 Dorsalgia, unspecified; N39.0 Urinary tract infection, site not specified

== ENCOUNTER → 2022-09-25 | Outpatient (CLI) | payer MEDICARE, MEDICAID ==
[2022-09-25 16:35] LABS: HEMATOCRIT 45.8 % (37.0-47.0); MEAN CELL VOLUME 92.3 fl (81.0-99.0); MEAN CORPUSCULAR HGB CONC 33.6 g/dl (33.0-37.0); MEAN PLATELET VOLUME 9.3 fl (9.6-12.3); RED BLOOD COUNT 4.96 10*6/uL (4.10-5.10); RED CELL DISTRI WIDTH 13.3 % (0-14.5); WHITE BLOOD COUNT 9.4 10*3/uL (4.8-10.8)
[2022-09-25 17:19] LABS: ALKALINE PHOSPHATASE 146 U/L (46-116); BUN 8 mg/dl (9-23); CHLORIDE 102 mmol/L (98-107); CHOLESTEROL 239 mg/dL (<200); LDL CHOLESTEROL 162 mg/dL (9-159); POTASSIUM 3.7 mmol/L (3.4-5.1); SGPT/ALT 22 U/L (10-49); TOTAL PROTEIN 7.3 gm/dL (6.0-8.0); TRIGLYCERIDES 197 mg/dl (<150)
== END | disposition home or self-care (01) ==
LOC: LAB 16:19
PROVIDERS: ATTEND Family Medicine
DX: Z01.812 Encounter for preprocedural laboratory examination (principal); E11.9 Type 2 diabetes mellitus without complications; E78.00 Pure hypercholesterolemia, unspecified; E55.9 Vitamin D deficiency, unspecified; Z79.899 Other long term (current) drug therapy

== ENCOUNTER 2022-11-09 12:37 | Emergency (ER) | payer OTHER, MEDICAID ==
[~2022-11-09] VITALS: Ht 152.4 cm; Wt 86.2 kg
[2022-11-09 12:39] VITALS: BP 152/92
[2022-11-09 13:17] LABS: BASO # 0.1 10*3/uL (0.0-0.1); BASO % 0.9 % (0.0-1.0); EOS % 0.3 % (1.0-4.0); HEMATOCRIT 49.4 % (37.0-47.0); LYMPH # 2.7 10*3/uL (1.3-4.4); LYMPH % 26.6 % (27.0-41.0); MEAN CELL VOLUME 91.7 fl (81.0-99.0); MEAN CORPUSCULAR HGB 30.2 pg (27.0-31.0); MEAN PLATELET VOLUME 8.5 fl (9.6-12.3); MONO # 0.6 10*3/uL (0.1-1.0); MONO % 6.2 % (3.0-9.0); NEUT # 6.6 10*3/uL (2.3-7.9); NEUT % 65.6 % (47.0-73.0); PLATELET COUNT AUTOMATED 382 10*3/uL (130-400); RED BLOOD COUNT 5.39 10*6/uL (4.10-5.10); RED CELL DISTRI WIDTH 15.1 % (0-14.5); WHITE BLOOD COUNT 10.1 10*3/uL (4.8-10.8)
[2022-11-09 13:40] LABS: ALKALINE PHOSPHATASE 161 U/L (46-116); BUN 12 mg/dl (9-23); CHLORIDE 104 mmol/L (98-107); POTASSIUM 3.7 mmol/L (3.4-5.1); SGPT/ALT 12 U/L (10-49); TOTAL PROTEIN 7.9 gm/dL (6.0-8.0)
[2022-11-09 15:20] LABS: BILIRUBIN Negative (Negative); BLOOD Negative (Negative); CLARITY Clear (Clear); COLOR Yellow (Yellow); GLUCOSE 3+ (Negative); KETONE 2+ (Negative); LEUKO ESTERASE Negative (Negative); NITRITE Negative (Negative); SPECIFIC GRAVITY >= 1.030 (1.001-1.030)
[2022-11-09 15:40] LABS: BACTERIA 1+; YEAST 1+
[2022-11-09] MEDS ORDERED: PHENERGAN25 M3 PO (16:39)
== END 2022-11-09 17:09 | disposition home or self-care (01) ==
LOC: ED 12:37
PROVIDERS: Nurse Practitioner Family
DX: A08.4 Viral intestinal infection, unspecified (principal); Z20.822 Contact with and (suspected) exposure to COVID-19; F32.A Depression, unspecified; E11.9 Type 2 diabetes mellitus without complications; I10 Essential (primary) hypertension; E03.9 Hypothyroidism, unspecified; Z88.8 Allergy status to other drugs, medicaments and biological substances; Z88.2 Allergy status to sulfonamides; Z79.899 Other long term (current) drug therapy; Z79.4 Long term (current) use of insulin; Z90.711 Acquired absence of uterus with remaining cervical stump; Z90.49 Acquired absence of other specified parts of digestive tract; Z98.890 Other specified postprocedural states; Z90.89 Acquired absence of other organs

== ENCOUNTER → 2022-11-24 | Outpatient (CLI) | payer OTHER, MEDICAID ==
[~2022-11-24] MED LIST changes: +JARDIANCE25 MG PO; +METHOCARBAMOL750 M1 PO; +PHENERGAN25 M3 PO
== END | disposition home or self-care (01) ==
LOC: CT 13:52
PROVIDERS: ATTEND Podiatrist
DX: M19.172 Post-traumatic osteoarthritis, left ankle and foot (principal); Z96.662 Presence of left artificial ankle joint

== ENCOUNTER → 2023-06-25 | Outpatient (CLI) | payer OTHER, MEDICAID ==
[~2023-06-25] MED LIST changes: +LANTUS SOL100 UNIT/1 SC; +Lantus SC; +OXYCODONE HCL10 M1 PO
[2023-06-25 15:51] LABS: MEAN CELL VOLUME 95.7 fl (81.0-99.0); MEAN CORPUSCULAR HGB 31.1 pg (27.0-31.0); MEAN CORPUSCULAR HGB CONC 32.5 g/dl (33.0-37.0); MEAN PLATELET VOLUME 8.5 fl (9.6-12.3); RED BLOOD COUNT 4.6 10*6/uL (4.10-5.10); RED CELL DISTRI WIDTH 13.4 % (0-14.5); WHITE BLOOD COUNT 10.6 10*3/uL (4.8-10.8)
[2023-06-25 16:26] LABS: ALKALINE PHOSPHATASE 157 U/L (46-116); BUN 9 mg/dl (9-23); CHLORIDE 103 mmol/L (98-107); CHOLESTEROL 276 mg/dL (<200); CPK 71 U/L (34-171); LDL CHOLESTEROL 190 mg/dL (9-159); POTASSIUM 4.3 mmol/L (3.4-5.1); SGPT/ALT 16 U/L (5-49); TOTAL PROTEIN 7.3 gm/dL (6.0-8.0); TRIGLYCERIDES 182 mg/dl (<150)
== END | disposition home or self-care (01) ==
LOC: LAB 15:20
PROVIDERS: ATTEND Family Medicine
DX: E78.00 Pure hypercholesterolemia, unspecified (principal); R06.02 Shortness of breath; R07.9 Chest pain, unspecified; E11.9 Type 2 diabetes mellitus without complications; I10 Essential (primary) hypertension

== ENCOUNTER → 2024-05-20 | Outpatient (CLI) | payer MEDICARE ==
[2024-05-20 16:56] LABS: HEMATOCRIT 38.8 % (37.0-47.0); MEAN CELL VOLUME 88.4 fl (81.0-99.0); MEAN CORPUSCULAR HGB 27.6 pg (27.0-31.0); MEAN CORPUSCULAR HGB CONC 31.2 g/dl (33.0-37.0); MEAN PLATELET VOLUME 8.8 fl (9.6-12.3); RED BLOOD COUNT 4.39 10*6/uL (4.10-5.10); RED CELL DISTRI WIDTH 15.8 % (0-14.5); WHITE BLOOD COUNT 8.8 10*3/uL (4.8-10.8)
[2024-05-20 17:47] LABS: VITAMIN D, 25-HYDROXY 35.3 ng/mL (30-100)
[2024-05-20 17:50] LABS: ALKALINE PHOSPHATASE 173 U/L (46-116); BUN 13 mg/dl (9-23); CHLORIDE 104 mmol/L (98-107); CHOLESTEROL 262 mg/dL (<200); FREE T4 1.07 ng/dl (0.89-1.76); LDL CHOLESTEROL 185 mg/dL (9-159); POTASSIUM 4.5 mmol/L (3.4-5.1); SGPT/ALT 12 U/L (5-49); TOTAL PROTEIN 7.3 gm/dL (6.0-8.0); TRIGLYCERIDES 189 mg/dl (<150)
== END | disposition home or self-care (01) ==
LOC: LAB 16:09
PROVIDERS: ATTEND Family Medicine
DX: K21.9 Gastro-esophageal reflux disease without esophagitis (principal); E55.9 Vitamin D deficiency, unspecified; E11.9 Type 2 diabetes mellitus without complications; R53.83 Other fatigue